=== PATIENT | female | born 1960 | race African-American/Black ===

== ENCOUNTER → 2017-07-30 | Outpatient (POV) | payer OTHER, SELFPAY | PROVIDERS: Visit Provider Internal Medicine | DX: I73.9 Peripheral vascular disease, unspecified (principal); I10 Essential (primary) hypertension; R07.89 Other chest pain | CPT/HCPCS: 93005 ==

== ENCOUNTER 2017-08-04 08:30 | Day surgery (SDC) | payer OTHER, SELFPAY ==
[2017-08-04] VITALS (16 sets, daily range): BP systolic 123–163; BP diastolic 69–99; PULSE 51–71; RESP 16–20; TEMP 36.6–36.7; O2SAT 94–100; BMI 23.0
--- NOTE | 2017-08-04 08:30 | IR_ITS ---
CARDIAC CATHETERIZATION DATE OF CATHETERIZATION:08/04/2017 10:07 AM PROCEDURES: 1. Right femoral arterial access 2. Catheter placement in the right external iliac artery 3. Right external iliac artery angiogram 4. Right radial access 5. Left heart catheterization 6. Left ventriculogram 7. Selective coronary angiogram 8. Catheter placement in the abdominal aorta 9. Abdominal aortography 10. Repositioning of the catheter in the abdominal aorta 11. Bilateral iliofemoral artery angiogram 12. Catheter placement in the right common iliac artery 13. The common iliac artery angiogram 14. Stent deployment to the right external iliac artery 15. Post stent deployment right external iliac artery angiogram INDICATION FOR TEST: 1. Peripheral artery disease 2. Abnormal ankle-brachial index 3. Simpson class III claudication 4. Coronary artery disease 5. Angina pectoris Informed consent was obtained prior to the procedure. COMPLICATIONS: None ESTIMATED BLOOD LOSS: Less than 10 ml. TECHNIQUE: One percent lidocaine used to anesthetize the right groin. The right femoral artery was accessed via the Seldinger technique and a 4 New Zealander sheath was placed in the right femoral artery. Using a glide wire the wire was wished distally. I was unable to get the wire into the aorta therefore JR4 catheter was advanced however I was unable to steer beyond the common iliac artery bifurcation. Angiography was performed via the right coronary catheter is demonstrated retrograde dissection plane. Because of this the sheath was removed and good hemostasis was achieved using manual pressure. At this point One percent lidocaine used to anesthetize the right anterior aspect of the wrist. The right radial artery was accessed via the Seldinger technique. A 6 New Zealander sheath was placed in the right radial artery. 2.5 mg of verapamil, 800 mcg of nitroglycerin and 5000 U Heparin were given through the arterial sheath. The trap catheter was also used to perform left heart catheterization left ventriculogram and selective coronary angiography. A pigtail catheter was advanced into the abdominal aorta and abdominal aortography was performed. The catheter was then repositioned and bilateral iliofemoral artery angiography was performed. An additional 2000 units of heparin was administered intravenously and a 125 cm multipurpose catheter was used to cannulate the right common iliac artery and angiography was performed using the roadmap modality. At this point an advantage wire was advanced under fluoroscopic guidance into the right superficial femoral artery. A 7 mm x 59 mm absolute pro balloon mounted stent was advanced through the radial artery into the right external iliac artery. The wire was pulled back and angiography was performed. The wire was reinserted and the stent was deployed at 11 naomi reducing the 90% stenosis to 0%. The balloon was pulled back into the proximal segment the wire was removed and angiography was performed which demonstrated wide patency of the right external iliac artery. At this point the apparatus was removed the sheath was removed good hemostasis was achieved using TR banding patient was transferred to the postop holding area in stable condition. ACT measured 262 seconds ANGIOGRAPHIC RESULTS: 1. The left main artery has an ostial 20% and distal 30% concentric stenosis 2. The left anterior descending artery is a very tortuous vessel and has proximal 20 and 30% stenoses with diffuse mid vessel 30 and 40% stenoses 3. The circumflex artery is nondominant yet still a large vessel with a high first obtuse marginal artery or ramus intermedius. Ramus has a proximal 50% stenosis while the proximal circumflex artery has 40 and 50% stenoses 4. The right coronary artery is a dominant
[2017-08-04 09:04] LABS: Basophils % 0.9 % (0.1-2.0); Eosinophils # 0.2 K/mm3 (0.0-0.4); Eosinophils % 3.6 % (0.1-12.0); Hematocrit 40.3 % (37.0-47.0); Hemoglobin 13.4 g/dL (12.2-16.2); Lymphocytes # 1.4 K/mm3 (0.7-4.5); Lymphocytes % 27.8 K/mm3 (10-50); Mean Corpuscular HGB Conc 33.3 g/dL (31.8-35.4); Mean Corpuscular Hemoglobin 29.2 pg (27.0-31.2); Mean Corpuscular Volume 87.6 fl (81-99); Mean Platelet Volume 7.6 fl (7.4-10.4); Monocytes # 0.4 K/mm3 (0.1-1.0); Monocytes % 7.1 % (1.7-9.3); Neutrophils % 60.7 % (37.0-80.0); Platelet Count 301 K/mm3 (142-424); Red Cell Distribution Width 13.8 % (11.5-17.5); White Blood Count 4.9 K/mm3 (4.8-10.8)
[2017-08-04 09:22] LABS: Anion Gap 9.2 mEq/L (5-15); Blood Urea Nitrogen 10 mg/dL (7-18); Carbon Dioxide 28 mmol/L (21.0-32.0); Chloride 104 mmol/L (98-107); Creatinine Clearance Estimated 89 mg/ml (0-300); Creatinine,Serum 0.67 mg/dL (0.55-1.02); Estimated Glomerular Filt Rate > 60 ml/min (>60); GFR (African American) > 60 ML/MIN (>60); Glucose 101 mg/dL (74-106); Potassium 4.2 mmoL/L (3.5-5.1); Sodium 137 mmol/L (136-145)
[2017-08-04 15:56] LABS: CATHL Activated Clotting Time 262 SEC (74-125)
== END 2017-08-04 14:30 | disposition home or self-care (01) ==
LOC: CATHLAB 08:33
PROVIDERS: PCP Family Medicine; Visit Provider Internal Medicine
DX: I25.119 Atherosclerotic heart disease of native coronary artery with unspecified angina pectoris (principal); Z72.0 Tobacco use; I73.9 Peripheral vascular disease, unspecified; I70.211 Atherosclerosis of native arteries of extremities with intermittent claudication, right leg
CPT/HCPCS: 36245; 37221; 75630; 75710; 80048; 85025; 85347; 93458; 99152; 99153; C1725; C1769; C1876; C1894; G0278; J1644; Q9966; Q9967

== ENCOUNTER 2017-08-13 07:31 | Day surgery (SDC) | payer OTHER, SELFPAY ==
[2017-08-13] VITALS (60 sets, daily range): BP systolic 118–193; BP diastolic 64–116; PULSE 58–96; RESP 16–30; TEMP 36.6–36.9; O2SAT 94–100; BMI 22.8
--- NOTE | 2017-08-13 | IR_ITS ---
PROCEDURE: 1. Right femoral arterial access 2. Left femoral arterial access 3. Catheter placement in the abdominal aorta left groin 4. Catheter placement in the abdominal aorta from the right groin 5. Angioplasty stent deployment to the distal abdominal aorta 6. Angioplasty stent deployment to the left common iliac artery 7. Angioplasty stent deployment to the right common iliac artery 8. Angioplasty stent deployment to the right external iliac artery 9. Right retrograde femoral angiogram 10. Left retrograde femoral angiogram INDICATION: 1. Peripheral artery disease 2. [place] class III claudication 3. Aortoiliac atherosclerosis Informed consent was obtained prior to the procedure. COMPLICATIONS: None ESTIMATED BLOOD LOSS: Blood loss less than 10 cc. TECHNIQUE:1% lidocaine used to anesthetize the left femoral groin. The left femoral artery was accessed via the Seldinger technique and a 6 Ivorian sheath was placed in the left femoral artery. 1% lidocaine was used to anesthetize the right groin in the right femoral artery was accessed via the Seldinger technique. A 6 Ivorian sheath was placed in the right femoral artery. The advantage wire is were used to traverse the stenosis in the left iliofemoral system. I was unable to pass the wire in a retrograde manner up the right iliofemoral system due to entering a dissection plane retrograde. Because of this a CRAWLEY catheter was placed in the left groin into the distal abdominal aorta and an advantage wire was used to traverse the stenosis in an antegrade manner. The catheter was then advanced into the right external iliac artery pushing back the dissection. This allowed retrograde cannulation of the external iliac artery and then passage of the wire into the abdominal aorta through the true lumen via the right groin. At this point the CRAWLEY catheter was placed back into the abdominal aorta and a wire was placed into the abdominal aorta from the left groin. 8 mm x 59 mm Omnilink stents were deployed simultaneously in the distal abdominal aorta extending into the right and left common iliac artery. Both were deployed at 15 naomi. Excellent angiographic results were obtained. An additional 7 mm x 59 mm Omnilink stent was then placed in the right common iliac artery extending into the right external iliac artery and then deployed at 15 naomi. Excellent angiographic results were obtained. Patient received 6000 units of heparin prior to the procedure producing an ACT of 276. An additional 2000 units of heparin was administered. At the end of the procedure retrograde angiography were performed via each femoral artery demonstrating wide patency. The procedure the patient transferred the postop holding area in stable condition for sheath removal Impression: 1. Successful reconstruction of the aortic bifurcation severe disease reduced to 0% with 2 bare-metal stents 2. Successful stenting of the right external iliac artery severe disease reduced to 0% with 1 bare-metal stent Plan: 1. Dual antiplatelet therapy 2. Tobacco cessation 3. Risk factor modification combined with cardiac rehabilitation and LDL less than 55
--- NOTE | 2017-08-13 | CT_ITS ---
CT abdomen pelvis wo con CLINICAL INDICATION: Severe abdominal pain and hypotension following iliac stent placement. Evaluate for retroperitoneal bleed ITS.REASON: POST CATH-- ILIAC STENTS ORDERING PHYSICIAN: Kolby Felix MD PATIENT AGE: 57 years COMPARISON: 07/15/2017 TECHNIQUE: Axial images obtained with sagittal and coronal reformats. PROCEDURE: Oral Contrast: None IV Contrast: None . FINDINGS: There are atelectatic changes in the lung bases. Prior cholecystectomy without ductal dilatation. The liver, spleen, adrenal glands, and pancreas are unremarkable. This exam was performed after contrast administration in the catheter lab. There was some residual contrast within the renal collecting system. Bilateral iliac artery stents are present. There is no evidence of retroperitoneal hemorrhage. No pelvic hematoma evident. Fluid-filled loops of small bowel are noted. Bowel gas pattern is nonspecific. No intestinal obstruction or free air.. No acute bony anomalies. There are bilateral common femoral artery sheaths in place with minimal stranding of the fat in the region bilaterally. IMPRESSION: Status post bilateral common iliac artery stent placement. No evidence of acute hemorrhage/perforation.
[2017-08-13 08:05] LABS: Basophils # 0.1 K/mm3 (0-0.2); Basophils % 1.2 % (0.1-2.0); Eosinophils # 0.3 K/mm3 (0.0-0.4); Hematocrit 39.3 % (37.0-47.0); Hemoglobin 13.3 g/dL (12.2-16.2); Lymphocytes # 1.7 K/mm3 (0.7-4.5); Lymphocytes % 30.9 K/mm3 (10-50); Mean Corpuscular HGB Conc 33.9 g/dL (31.8-35.4); Mean Corpuscular Hemoglobin 28.8 pg (27.0-31.2); Mean Corpuscular Volume 85.1 fl (81-99); Mean Platelet Volume 7.1 fl (7.4-10.4); Monocytes # 0.3 K/mm3 (0.1-1.0); Monocytes % 5.7 % (1.7-9.3); Neutrophils # 3.1 K/mm3 (1.8-7.8); Neutrophils % 57.3 % (37.0-80.0); Platelet Count 341 K/mm3 (142-424); Red Blood Count 4.62 M/mm3 (4.20-5.40); Red Cell Distribution Width 13.4 % (11.5-17.5); White Blood Count 5.5 K/mm3 (4.8-10.8)
[2017-08-13 08:15] LABS: Anion Gap 11.9 mEq/L (5-15); Blood Urea Nitrogen 11 mg/dL (7-18); Carbon Dioxide 26 mmol/L (21.0-32.0); Chloride 106 mmol/L (98-107); Creatinine Clearance Estimated 85 mL/min (0-300); Creatinine,Serum 0.72 mg/dL (0.55-1.02); Estimated Glomerular Filt Rate 83 ml/min (>60); GFR (African American) 101 ML/MIN (>60); Glucose 102 mg/dL (74-106); Potassium 3.9 mmoL/L (3.5-5.1); Sodium 140 mmol/L (136-145)
[2017-08-13 11:12] LABS: Microscopic, Urine URINE MICROSCOPIC (MICROSCOPIC)
[2017-08-13 11:15] LABS: Appearance,Urine CLEAR (Clear); Bilirubin,Urine Negative (Negative); Blood, Urine Negative (Negative); Color,Urine STRAW (Yellow); Glucose,Urine (UA) Negative (Negative); Ketones,Urine Negative (Negative); Leukocyte Esterase,Urine Negative (Negative); Nitrate,Urine Negative (Negative); Protein,Urine 1+ (Negative); Urobilinogen,Urine 0.2 EU/dl (0.2)
[2017-08-13 11:34] LABS: Bacteria,Urine Trace /lpf
[2017-08-16 08:17] LABS: CATHL Activated Clotting Time 161 SEC (74-125)
[2017-08-16 08:34] LABS: CATHL Activated Clotting Time 331 SEC (74-125)
[2017-08-16 08:35] LABS: CATHL Activated Clotting Time 268 SEC (74-125)
--- NOTE | 2017-08-19 11:06 | PC.NURSE ---
post procedure call made, pt states she has dime sized knot to groin area but has not changed since procedure, denies any questions/concerns at this time
== END 2017-08-13 18:00 | disposition home or self-care (01) ==
LOC: CATHLAB 07:32
PROVIDERS: PCP Family Medicine; Visit Provider Internal Medicine
DX: I73.9 Peripheral vascular disease, unspecified (principal); Z72.0 Tobacco use; I70.0 Atherosclerosis of aorta; I25.10 Atherosclerotic heart disease of native coronary artery without angina pectoris; I10 Essential (primary) hypertension
CPT/HCPCS: 37221; 37223; 74176; 80048; 81001; 85025; 85347; 99152; 99153; C1725; C1769; C1876; C1894; J1644; J2405; J2720; Q9966

== ENCOUNTER → 2017-09-24 09:02 | Outpatient (CLI) | payer OTHER, SELFPAY ==
--- NOTE | 2017-09-24 09:04 | MR_ITS ---
MR lumbar spine wo/w con, MR 3-d myelogram/MRCP HISTORY: Low back pain with bilateral leg pain. Pain when walking and standing which is worsening ITS.REASON: LOW BACK PAIN, BILATERAL LEG PAIN ORDERING PHYSICIAN: Kolby Felix MD PATIENT AGE: 57 years COMPARISON: None TECHNIQUE: Standard multiplanar multiecho sequences are performed without contrast. 3-D MIP and myelographic images are also rendered and reviewed FINDINGS: There is normal alignment. The spinal cord ends at the L1 level. T12-L1: Unremarkable. L1-L2: Unremarkable. L2-L3: Unremarkable. L3-L4: Unremarkable. L4-L5: There is a small broad-based central/left paracentral and left lateral disc protrusion. This is causing mild left lateral recess and foraminal narrowing and is impinging upon the introspective left L5 nerve root. L5-S1: Bulging disc with small right paracentral disc protrusion/herniation which is impinging upon the right S1 nerve root and causing mild right lateral recess and foraminal narrowing. There is some increased T2 and enhancement involving the protruding disc. IMPRESSION: 1. There is a small broad-based central/left paracentral and left lateral disc protrusion at L4-L5. This is causing mild left lateral recess and foraminal narrowing and is impinging upon the introspective left L5 nerve root. 2. Bulging disc with small right paracentral disc protrusion/herniation at L5-S1 which is impinging upon the right S1 nerve root and causing mild right lateral recess and foraminal narrowing. There is some increased T2 and enhancement involving the protruding disc suggesting underlying inflammation of the protruding disc
[2017-09-24 09:35] LABS: Blood Urea Nitrogen 9 mg/dL (7-18); Creatinine,Serum 0.72 mg/dL (0.55-1.02); Estimated Glomerular Filt Rate 83 ml/min (>60); GFR (African American) 101 ML/MIN (>60)
--- NOTE | 2017-09-24 10:30 | HMH.ITSHM ---
AMLODIPINE CARVEDILOL LISINOPRIL CLOPIDOGREL ASPIRIN NITROSTAT GABAPENTIN
== END ==
PROVIDERS: PCP Family Medicine; Visit Provider Internal Medicine
DX: G62.9 Polyneuropathy, unspecified (principal); M54.16 Radiculopathy, lumbar region; M54.5 Low back pain; I73.9 Peripheral vascular disease, unspecified
CPT/HCPCS: 36415; 72158; 76376; 82565; 84520; A9576

== ENCOUNTER → 2017-10-14 13:59 | Outpatient (POV) | payer OTHER, SELFPAY | PROVIDERS: PCP Family Medicine; Visit Provider Neurological Surgery | DX: Z00.00 Encounter for general adult medical examination without abnormal findings (principal) ==

== ENCOUNTER 2017-12-16 15:30 | Outpatient (RCR) | payer OTHER, SELFPAY | END 2017-12-16 15:31 | disposition home or self-care (01) | LOC: PT 15:30 | PROVIDERS: PCP Family Medicine; Visit Provider Neurological Surgery | DX: M54.5 Low back pain (principal) | CPT/HCPCS: 97010; 97012; 97014; 97033; 97035; 97110; 97140; 97164; G0283 ==

== ENCOUNTER 2018-05-04 16:00 | Outpatient (RCR) | payer BC, SELFPAY ==
--- NOTE | 2018-04-15 10:40 | HMH.PTOPEV ---
PT Outpatient Evaluation Rehab PT Outpatient Evaluation Start: 04/15/18 10:29 Freq: Status: Active Protocol: Document 04/15/18 10:29 RYAN (Rec: 04/15/18 10:39 RYAN [id number]) Electronically Signed By Domingo Mantilla, PT 04/15/18 10:29 Outpatient Therapy Subjective History Subjective History Pt is a 58 year old female presenting to outpatient PT with reports of chronic low back pain starting 10/2017 with the most recent exacerbation starting 03/07/18 when sharp pain shot down the R posterior thigh with forward bending motion. Most recent diagnostics indicate L 4/5 disc bulge. Chief Complaint Pain Symptom Type Shooting Symptoms Relieved By Rest/Positioning Heat OTC Meds Symptoms Aggravated By Sitting Standing Walking Prior Functional Limitations None Current Functional Limitations Standing Sitting Walking Symptom Description Constant but Variable Level of pain today (0-10) 2 Pain scale - at its best (0-10) 1 Pain scale - at its worst (0-10) 7 Lumbopelvic Eval Posture Thoracic Spine Posture Standing Position Neutral Lumbar Spine Posture Standing Position Increased Lordosis Assistive device Assistive Devices None / NA Gait Observation General Gait Pattern Observation No Deviations/Normal Range of Motion Lumbar Spine Active Flexion Range of 85 Motion (degrees) Lumbar Spine Active Extension Range of 16 Motion (degrees) Left Lumbar Spine Lateral Flexion Active 14 Range of Motion (degrees) Right Lumbar Spine Lateral Flexion 28 Active Range of Motion (degrees) Lumbar Spine ROM Limitations Soft Tissue Tightness Bony Restriction Manual Muscle Test Bilateral Knee Extension Strength Grade 5 Normal Knee Flexion Strength Grade 5 Normal Hip Flexion Strength Grade 5 Normal Extensor Hallucis Longus Strength Grade 5 Normal Ankle Dorsiflexion Strength Grade 5 Normal Gastronemius/Soleus Strength Grade 5 Normal DTR Rt Patellar 2+ Lt Patellar 2+ Rt Gastroc/Soleus 2+ Lt Gastroc/Soleus 2+ Special Tests Lumbar Spine Screen Positive Hip Scouring (Quadrant) Test Negative Right Hip Johnathan (YAMIL) Test Positive
== END 2018-05-04 16:01 | disposition home or self-care (01) ==
LOC: PT 16:00
PROVIDERS: PCP Family Medicine; Visit Provider Family Medicine
DX: M51.36 Other intervertebral disc degeneration, lumbar region (principal)
CPT/HCPCS: 97010; 97012; 97014; 97110; 97163; G0283

== ENCOUNTER → 2018-05-09 13:32 | Outpatient (CLI) | payer BC, SELFPAY ==
--- NOTE | 2018-05-09 13:34 | US_ITS ---
US Arterial Ankle Brachial Ind History: ITS.REASON: claudication, smoker, rest pain values for ankle-brachial index ankle brachial index values are ORDERING PHYSICIAN: Kolby Felix MD PATIENT AGE: 58 years TECHNIQUE: Segmental pressures obtained of both right and left leg. These are compared to brachial blood pressure to yield index at each level sampled including summary YAHAIRA. The data sheets from the procedure are available in PACS FINDINGS Rest study only performed today No prior studies available for comparison. Blood pressures reported are in millimeters mercury. RIGHT LEG YAHAIRA = .6. RIGHT LEG TBI=.5 Brachial BP: 160 Thigh BP: 138 Calf BP: 96 Ankle PT: 100 Ankle DP : 112 Digit =73 LEFT LEG YAHAIRA = .5 LEFT LEG TBI= .4 Brachial BPD: 157 Thigh BP: 128 Calf BP: 99 Ankle PT:72 Ankle DP: 62 Digit = 70 Pulses and waveforms: Dampened waveforms IMPRESSION: Low bilateral ABIs of 0.6 on the right and 0.5 on the left indicating moderate arterial disease.
== END ==
PROVIDERS: PCP Family Medicine; Visit Provider Internal Medicine
DX: I25.10 Atherosclerotic heart disease of native coronary artery without angina pectoris (principal); I73.9 Peripheral vascular disease, unspecified; E78.5 Hyperlipidemia, unspecified; I10 Essential (primary) hypertension; F17.200 Nicotine dependence, unspecified, uncomplicated
CPT/HCPCS: 93922

== ENCOUNTER → 2018-06-15 07:42 | Outpatient (CLI) | payer BC, SELFPAY ==
--- NOTE | 2018-06-15 07:44 | AS_ITS ---
Renal Arterial Duplex Indications: 405.91 Unspecified renovascular hypertension. IMPRESSIONS 1. The right renal artery appears normal. 2. The left renal artery appears normal. Complete renal arterial duplex. Duplex scan and Doppler flow study including spectral analysis, color and sanchez scale imaging. Height: Height: 162.6cm. Height: 64in. Weight: Weight: 60.3kg. Weight: 132.7lb. Body mass index: BMI: 22.8kg/m^2. Body surface area: BSA: 1.66m^2. Location: Vascular laboratory. Patient status: Outpatient. Tables: Arterial flow: + +--------+--------+ Location V sys V ed + +--------+--------+ Right renal - proximal 183cm/s 66.5cm/s + +--------+--------+ Right renal - mid 140cm/s 39.6cm/s + +--------+--------+ Right renal - distal 141cm/s 41.7cm/s + +--------+--------+ Left renal - proximal 94.3cm/s 28.9cm/s + +--------+--------+ Left renal - mid 122cm/s 47.2cm/s + +--------+--------+ Left renal - distal 110cm/s 37.3cm/s + +--------+--------+ Renal anatomy: + +------+------+ Left Right + +------+------+ Long axis 10.9cm 11.4cm + +------+------+ Short axis 7.3cm 6.1cm + +------+------+ Velocity ratios: + +-----+ V sys + +-----+ Right renal/aortic 2.1 + +-----+ Left renal/aortic 1.4 + +-----+ (Report amended ) Electronically signed by: Rufino Parra [id number]
--- NOTE | 2018-06-15 07:44 | US_ITS ---
. US kidney retroperitoneal comp Ordering Physician: Kolby Felix MD Patient Age: 58 years: Female HISTORY: ITS.REASON: HTN . TECHNIQUE: Ultrasound both kidneys. COMPARISON :. CTA aorta from July 2014 FINDINGS Kidneys normal size bilaterally with no hydronephrosis nor mass. no cyst Cortex well-maintained bilaterally. Good color Doppler flow both kidneys with this general survey technique . Kidneys normal size Right kidney. 10 cm on the overall may be prior retroareolar was K no the in length x 3.9 cm thousand 6.25 cm. Left kidney insertion of the liver or is 3 cm x 4.1 cm x 5.1 cm. Additional note after reviewing prior CT. The July 2017 CTA aorta and runoff shows widely patent renal arteries bilaterally. No significant renal artery stenosis and although images of branch vessels is not compromised, see no bleeding or evidence of fibromuscular dysplasia... There is a single more generous caliber right renal artery just to smaller caliber left renal arteries is noted. (Also adrenals appear within normal limits bilaterally.-With No retroperitoneal mass/ & no evidence of retroperitoneal pheochromocytoma on this CT from July 2017) IMPRESSION: Kidneys appear normal bilaterally. No renal mass. Cortex well-maintained. (Limited review of 2017 CTA aorta show no renal artery stenosis, nor adrenal enlargement/ mass)
== END ==
PROVIDERS: PCP Family Medicine; Visit Provider Internal Medicine
DX: I10 Essential (primary) hypertension (principal); I25.10 Atherosclerotic heart disease of native coronary artery without angina pectoris; E78.49 Other hyperlipidemia; G62.9 Polyneuropathy, unspecified; I20.9 Angina pectoris, unspecified; I73.9 Peripheral vascular disease, unspecified; K55.059 Acute (reversible) ischemia of intestine, part and extent unspecified; F17.200 Nicotine dependence, unspecified, uncomplicated
CPT/HCPCS: 76770; 93976

== ENCOUNTER → 2018-10-27 15:01 | Outpatient (CLI) | payer BC, SELFPAY ==
--- NOTE | 2018-10-27 15:04 | CT_ITS ---
EXAM: CT LUNG LOW DOSE WO CONTRAST COMPARISON: None HISTORY: 1 pack per day for 40 years ago 40 pack-year.. Currently smoking no signs or symptoms of lung cancer TECHNIQUE: The exam was performed on a GE Light Speed [address] scanner using 3.0 mGy CTDI. A low dose helical CT CHEST was performed on a multi-detector scanner. All CT scans at this facility use one or more dose reduction techniques, viz.: automated exposure control, ma/kV adjustment per patient size (including targeted exams where dose is matched to indication, i.e. head) or iterative reconstruction technique. The LDCT was performed in a facility that meets the criteria for the screening program. Data regarding this exam was submitted to ACR which is an approved registry. The order for this exam indicates that it came as a result of a lung cancer screening counseling shard decision-making visit that included all the elements required of such a visit including smoking cessation. The radiologist interpreting this exam meets the CMS criteria for the LDCT lung cancer screening program. The exam is reported using the Lung-RADS classification scale and reported to the ACR registry. NOTE: This study was performed for the specific purposes of lung cancer screening and is not an alternative to diagnostic chest CT. RADIATION DOSE: CTDI vol(CT dose Index-volume) = 29mGy DLP (Dose Length Product) = 101.86 mGy-cm FINDINGS: LUNG COOK Moderately pronounced emphysema. Centrilobularr emphysematous withbleb formation most evident at the upper lung cook bilateral . There are some mild fibrotic changes noted at the, posterior lung bases bilaterally these along with metallic cage changes most evident at the right lung base. Borderline airway thickening centrally. No endobronchial findings.... No lung mass evident. No focal discrete noduleq of concern identified. There is a benign calcified granuloma at the medial right lung base, measuring 4.4 mm. Benign feature. Also benign caliber granuloma seen on axial image 44 at RLL just posterior to the left atrium. Other small calcified granulomas are seen just above this Thus Benign nodules identified (Category1). On Final review I would note that there is a tiny 3.6 mm nodule at the left posterior sulcus but most likely related to scarring. By far most likely Benign feature. Can be followed in one year. LungI-RADS Category 2 MEDIASTINUM: no significant mediastinal adenopathy or mass. Posterior Right lucita at junction with mediastinum. Calcified hilar nodes here reflect old granulomatous disease. Great vessels satisfactory. Aorta normal caliber. The heart. Coronary artery calcification moderately pronounced. Most evident involving the left main, first diagonal, LAD. Also calcification right coronary. Upper abdomen unremarkable. Cholecystectomy. IMPRESSION: 1. Moderately pronounced emphysematous changes bilaterally. 2. No lung masses or nodules of significant concern. Lung RADS Category: 2. Follow-up one year recommended 3. Notable Coronary artery calcification involving left main, LAD, first diagonal right coronary RECOMMENDATIONS: 12 monthd LDCT follow-up
== END ==
PROVIDERS: PCP Family Medicine; Visit Provider Family Medicine
DX: Z12.2 Encounter for screening for malignant neoplasm of respiratory organs (principal); Z87.891 Personal history of nicotine dependence

== ENCOUNTER 2019-02-06 15:53 | Outpatient (RCR) | payer BC, SELFPAY ==
--- NOTE | 2019-02-06 17:25 | HMH.PTOPEV ---
PT Outpatient Evaluation Rehab PT Outpatient Evaluation Start: 02/06/19 16:30 Freq: Status: Active Protocol: Document 02/06/19 16:31 ROOPAREFUGIO (Rec: 02/06/19 17:24 JIMZEKE [id number]) Electronically Signed By Jaxon Mckinney, VANESSA 02/06/19 16:31 Outpatient Therapy Subjective History Subjective History This is the initial Physical Therapy evaluation for Zaira Steward. Pt is a 58 y/o female referred to PT for c/o RUE, shoulder and neck pain along with paresthesia in R hand. Pt reports pain began insidiously ~ 3 weeks ago. Pt reports she thought it was due to a change at work but after she changed back the pain did not resolve. Pt reports her pain has been increasing. Chief Complaint Pain,Paresthesia Symptom Type Ache,Throb,Sharp,Dull,Stabbing ,Burning,Numbness,Tingling, Shooting Symptoms Relieved By Nothing Symptoms Aggravated By Bending/Stooping,Physical Activity,Lifting Prior Functional Limitations None Current Functional Limitations Lifting,Housework,Driving, Sleeping,Recreation Activity Symptom Description Constant but Variable Level of pain today (0-10) 6 Pain scale - at its best (0-10) 5 Pain scale - at its worst (0-10) 8 Cervical Eval Palpation Cervical Muscles R Cervical Paraspinal,R Upper Trapezius,R Thoracic Paraspinals Cervical/Thoracic Palpation Findings Tenderness,Spasm,Muscle Guarding Flexibility Deficits Upper Trapezius Muscle Length (R) Mild Tightness AROM Cervical Spine Extension Active Range of 30 w/ pain Motion (degrees) Cervical Spine Flexion Active Range of 15 w/ pain Motion (degrees) Cervical Spine Right Lateral Flexion 25 w/ pain Active Range of Motion (degrees) Cervical Spine Left Lateral Flexion 20 w/ pain Active Range of Motion (degrees) MMT Bilateral Deltoid (C5) 4 Good Biceps Brachii Strength Grade 4 Good Wrist Extension Strength Grade 4 Good Triceps Brachii Strength Grade 4 Good Wrist Flexion Strength Grade 4 Good DTR Rt Biceps 1+ Lt Biceps 1+ Rt Brachioradialis 1+ Lt Brachioradialis 1+ Rt Triceps
== END 2019-02-06 15:58 | disposition home or self-care (01) ==
LOC: PT 15:53
PROVIDERS: Visit Provider Family Medicine
DX: M54.12 Radiculopathy, cervical region (principal)
CPT/HCPCS: 97010; 97012; 97014; 97110; 97163; G0283

== ENCOUNTER 2019-04-13 10:30 | Outpatient (RCR) | payer BC, SELFPAY ==
--- NOTE | 2019-04-06 13:53 | HMH.PTOPEV ---
PT Outpatient Evaluation Rehab PT Outpatient Evaluation Start: 04/06/19 13:06 Freq: Status: Active Protocol: Document 04/06/19 13:35 MARCKRAULITO (Rec: 04/06/19 13:53 MARCKMAYRADEANN [id number]) Electronically Signed By Domingo Mantilla, PT 04/06/19 13:35 Outpatient Therapy Subjective History Subjective History Patient is a 59 year old female presenting to outpatient PT with reports of acute low back pain with LLE radicular symptoms to the L foot starting approximately 1. 5 weeks ago of insidious onset . Pt has been to the ER at [facility] 2x over the past week. CT scan indicates multi-level disc bulges most prominent at L 4/5 consistent with dermatomal distribution of symptoms. Comorbidities include hx of HTN, cardiac stents x 3. Chief Complaint Pain,Paresthesia Symptom Type Ache,Sharp,Numbness,Tingling, Shooting Symptoms Relieved By Heat Prior Functional Limitations None Current Functional Limitations Reaching,Lifting,Housework, Standing,Sitting,Squatting, Recreation Activity,Walking, Stairs Symptom Description Constant but Variable Level of pain today (0-10) 8 Pain scale - at its best (0-10) 7 Pain scale - at its worst (0-10) 10 Lumbopelvic Eval Posture Thoracic Spine Posture Standing Position Neutral Lumbar Spine Posture Standing Position Neutral Assistive device Assistive Devices None / NA Gait Observation General Gait Pattern Observation Decrease Weight Bear (L) Palapation tenderness left lumbar spinal tenderness Yes: 3/4 grossly paraspinal tenderness Yes buttock tenderness Yes Lumbar/Sacral Palpation Findings Tenderness Accessory Movement L4 left L5 left S1 left Range of Motion Lumbar Spine Active Flexion Range of 58 Motion (degrees) Lumbar Spine Active Extension Range of 18 Motion (degrees) Left Lumbar Spine Lateral Flexion Active 27 Range of Motion (degrees) Right Lumbar Spine Lateral Flexion 24 Active Range of Motion (degrees) Lumbar Spine ROM Limitations Soft Tissue Tightness,Bony Restriction Manual Muscle Test Bilateral Knee Extension Strength Grade
== END 2019-04-13 10:35 | disposition home or self-care (01) ==
LOC: PT 10:30
PROVIDERS: Visit Provider Family Medicine
DX: M54.16 Radiculopathy, lumbar region (principal)
CPT/HCPCS: 97010; 97014; 97033; 97035; 97110; 97163; G0283

== ENCOUNTER → 2022-06-09 08:09 | Outpatient (CLI) | payer BC, SELFPAY ==
--- NOTE | 2022-06-09 08:11 | MM_ITS ---
PROCEDURE INFORMATION: Exam: MG Bilateral Screening 3D Mammography Exam date and time: 06/09/2022 8:02 AM Age: 62 years old Clinical indication: Screening examination. Her grandmother had breast cancer. TECHNIQUE: Imaging protocol: Bilateral Screening tomosynthesis and 2D mammography including computer-aided detection (CAD) when performed. COMPARISON: 1. MG DMSB DIG MAMM-SCREEN JOSEPHINE W/CAD 05/07/2017 4:24 PM 2. MG DMSB DIG MAMM-SCREEN JOSEPHINE 05/24/2014 4:41 PM 3. MG DIGMAMMS MAMMOGRAM SCREEN-TOURIST CABIN KEEPER N/C 11/05/2008 4:47 PM 4. MG DIGMAMMDX MAMMOGRAM DX-TOURIST CABIN KEEPER N/C 05/23/2008 4:47 PM FINDINGS: MAMMOGRAPHY: Breast composition: There are scattered areas of fibroglandular density. Mass: No suspicious mass. Architectural distortion: None. Calcifications: No suspicious calcifications. Asymmetric density: None. Skin thickening: None. Axillary adenopathy: None. IMPRESSION: No mammographic evidence of malignancy. Annual screening is recommended unless otherwise clinically indicated. ASSESSMENT: BI-RADS Category 1: Negative
== END ==
PROVIDERS: PCP Family Medicine; Visit Provider Family Medicine
DX: Z12.31 Encounter for screening mammogram for malignant neoplasm of breast (principal)
CPT/HCPCS: 77063; 77067

== ENCOUNTER → 2022-10-07 13:42 | Outpatient (CLI) | payer BC, SELFPAY ==
[2022-10-07 13:32] LABS: Microscopic, Urine URINE MICROSCOPIC (MICROSCOPIC)
--- NOTE | 2022-10-07 13:43 | CT_ITS ---
FINAL REPORT TECHNIQUE: Axial images were obtained from the lung apex to the mid abdomen by computed tomography. This study was performed with techniques to keep radiation doses as low as reasonably achievable (ALARA). Individualized dose reduction techniques using automated exposure control or adjustment of mA and/or kV according to the patient's size were employed. CLINICAL HISTORY: lung cancer screening, currently smokes half pack per day for 10 years, no prior cancer hx COMPARISON: 10/27/2018 FINDINGS: CHEST CT LOW DOSE CTDI vol (mGy): 2.90 DLP (mGy-cm): 96.38 There is severe coronary artery calcification. There is no axillary adenopathy. There is no hilar or mediastinal adenopathy. The heart is normal in size. There is no pericardial or pleural effusion. There are moderate changes of emphysema. There is a 3 mm lateral left lung base nodule which is stable. There is a calcified granuloma in the right lower lobe. The patient is status post cholecystectomy. IMPRESSION: Coronary artery calcification. Lung RADS category 1S. Recommend 12 month follow-up low-dose chest CT. Reviewed, Interpreted and Dictated by Martin Box III, MD Transcribed by Maureen Huber Authenticated and [facility]
[2022-10-07 14:04] LABS: Appearance,Urine CLEAR (Clear); Bilirubin,Urine Negative (Negative); Blood, Urine TRACE-I (Negative); Color,Urine YELLOW (Yellow); Glucose,Urine (UA) Negative (Negative); Ketones,Urine Negative (Negative); Leukocyte Esterase,Urine Negative (Negative); Nitrate,Urine Negative (Negative); Protein,Urine Negative (Negative); Specific Gravity, Urine 1.015 (1.005-1.030); Urobilinogen,Urine 0.2 EU/dl (0.2)
[2022-10-07 14:09] LABS: Basophils # 0.1 K/mm3 (0-0.2); Basophils % 1.4 % (0.1-2.0); Eosinophils # 0.3 K/mm3 (0.0-0.4); Eosinophils % 4.7 % (0.1-12.0); Hematocrit 42.9 % (37.0-47.0); Hemoglobin 14.2 g/dL (12.2-16.2); Lymphocytes # 2.1 K/mm3 (0.7-4.5); Lymphocytes % 33.9 % (10-50); Mean Corpuscular HGB Conc 33.2 g/dL (31.8-35.4); Mean Corpuscular Hemoglobin 29.3 pg (27.0-31.2); Mean Corpuscular Volume 88.4 fl (81-99); Mean Platelet Volume 7.6 fl (7.4-10.4); Monocytes # 0.4 K/mm3 (0.1-1.0); Monocytes % 6.3 % (1.7-9.3); Neutrophils # 3.3 K/mm3 (1.8-7.8); Neutrophils % 53.6 % (37.0-80.0); Platelet Count 408 K/mm3 (142-424); Red Blood Count 4.85 M/mm3 (4.20-5.40); Red Cell Distribution Width 14.1 % (11.5-17.5); White Blood Count 6.1 K/mm3 (4.8-10.8)
[2022-10-07 14:17] LABS: Bacteria,Urine Trace /lpf; Squamous Epithelial Cell,Urine Occasional #/hpf (0-5); WBC,Urine Occasional #/hpf (0-3)
[2022-10-07 15:24] LABS: Alanine Aminotransferase 23 U/L (12-78); Albumin Level 4.4 g/dl (3.5-5.0); Albumin/Globulin Ratio 1.7 (1.1-1.8); Alkaline Phosphatase 87 U/L (38-126); Aspartate Amino Transferase 28 U/L (14-36); Bilirubin,Total 0.6 mg/dl (0.2-1.3); Blood Urea Nitrogen 13 mg/dl (7-17); Calcium 9.1 mg/dl (8.4-10.2); Carbon Dioxide 25 mmol/L (22.0-30.0); Chloride 105 mmol/L (98-107); Chol/HDL Ratio 6.1 (1-3.5); Cholesterol 291 mg/dl (140-200); Estimated Glomerular Filt Rate 73 ml/min (>60); GFR (African American) 88 ML/MIN (>60); Globulin 2.6 g/dL (1.3-3.2); Glucose 86 mg/dl (74-100); HDL Cholesterol 48 mg/dl (40-60); Sodium 137 mmol/L (136-145); Triglycerides 206 mg/dl (30-150); VLDL Cholesterol 41 mg/dL (0-40)
[2022-10-07 15:35] LABS: Direct LDL Cholesterol 172.14 mg/dL (100-129)
[2022-10-07 15:57] LABS: Thyroid Stimulating Hormone 1.17 uIU/mL (0.465-4.68)
== END ==
LOC: RAD 13:43
PROVIDERS: PCP Family Medicine; Visit Provider Family Medicine
DX: E78.5 Hyperlipidemia, unspecified (principal); I10 Essential (primary) hypertension; I73.9 Peripheral vascular disease, unspecified; Z87.891 Personal history of nicotine dependence; Z12.2 Encounter for screening for malignant neoplasm of respiratory organs
CPT/HCPCS: 36415; 71271; 80053; 80061; 81001; 84443; 85025; 87086

== ENCOUNTER → 2022-10-19 12:43 | Outpatient (CLI) | payer BC, SELFPAY ==
--- NOTE | 2022-10-19 12:44 | CT_ITS ---
FINAL REPORT CLINICAL HISTORY: claudication/pad/jelena FINDINGS: Post contrast axial imaging of the aorta and bilateral lower extremity was obtained and reviewed.This study was performed with techniques to keep radiation doses as low as reasonably achievable (ALARA). Individualized dose reduction techniques using automated exposure control or adjustment of mA and/or kV according to the patient''s size were employed. There is no evidence of aortic aneurysm. There is moderate vascular calcification of the distal abdominal aorta without evidence of aortic stenosis. The celiac axis, superior mesenteric artery and inferior mesenteric artery are patent without stenosis. There is no evidence of renal artery stenosis. There are bilateral common iliac artery stents in place. Right: Right iliac artery stent is seen to the level of the common femoral artery. 50% stenosis is seen at the distal margin of the stent. There is moderate atherosclerosis throughout the mid and distal superficial femoral artery continuous with the popliteal artery. There is 2 vessel runoff via the anterior tibial and peroneal arteries. Left: There is moderate atherosclerosis of the mid and distal superficial femoral artery continuous with the popliteal artery. There is segmental occlusion of the proximal left anterior tibial artery with distal reconstitution. Peroneal artery is continuous. Gallbladder is surgically absent. There are calcified granulomas of the spleen. Uterus is eccentric to the left. Review of the remaining abdomen and pelvis demonstrates no evidence of mass or adenopathy. There is no fluid collection or acute inflammatory process. IMPRESSION: Mild atherosclerotic irregularity of the mid and distal SFA bilaterally. Right external iliac artery stent with 50% stenosis distally. Reviewed, Interpreted and Dictated by Evin Atkins MD Transcribed by Alexia Song Authenticated and [facility] [place]
--- NOTE | 2022-10-19 13:13 | CA_ITS ---
APPROVED REPORT EXAM: Comprehensive 2D, Doppler, and color-flow Echocardiogram Manager Quantitative: Lyric Miller RT(R) Ht: 5 ft 4 in Wt: 127lbs BSA: 1.61 BP: 198/78 mmHg Indications: abn EKG, HTN, hyperlipidemia, SOB, smoker, CAD, ADAM, PVD 2D Dimensions LVOT 1.94 cm (M/F) 1.5-2.5 LA Volume 16.10 mL LA Volume Index 10.00 mL/m2 (M/F) 16-34 M-Mode Dimensions RVDd 2.76 cm (0.9-2.6) LA Diam 3.03 cm (1.9-4.0) LVDd 4.39 cm (3.5-5.7) Ao Diam 2.24 cm (2.0-3.7) LVDs 3.23 cm (3.5-5.7) IVSd 0.76 cm (0.6-1.1) PWd 0.67 cm (0.6-1.1) EF (Teich) 51.90% FS 26.40% EDV (Teich) 87.20 mL TAPSE 2.10 (<1.7) ESV (Teich) 41.90 mL LV Diastology E Decel Time 163.00 (160-240 msec) E/A Ratio 1.47 MED E' 8.90 (< 7 cm/sec) E'/MED E' Ratio 11.30 (>14) LAT E' 11.60 (<10 cm/sec) E/LAT E' Ratio 8.67 (>14) Mitral Valve MV A Velocity 69.00 (40-130 cm/s) E/A Ratio 1.47 MV Decel. Time 163.00 (160-240 ms) Left Ventricle Left atrium is mildly enlarged, left ventricle is normal size mild concentric left ventricular hypertrophy, estimated ejection fraction 55% with no regional wall motion abnormality, diastolic parameters are inconclusive. Right Ventricle Right atrium and right ventricular normal size and contractility. Aortic Valve Aortic valve is minimally thickened and fibrosed there is no aortic stenosis aortic insufficiency. Mitral Valve Mitral valve is grossly normal, there is trace mitral regurgitation. Tricuspid Valve Tricuspid grossly normal, there is trace tricuspid regurgitation, tricuspid regurgitation jet velocity is inadequate for calculation of the right ventricular systolic pressure. Pulmonic Valve Pulmonic valve is poorly visualized. Great Vessels Aortic root is normal size. Inferior vena cava normal 7 normal inspiratory collapse. Pericardium No significant pericardial effusion noted. Conclusion 1. Mildly enlarged left atrium, normal left ventricular size mild concentric left ventricular hypertrophy, estimated ejection fraction 55% with no regional wall motion abnormality, diastolic parameters are inconclusive. 2. Trace mitral and tricuspid regurgitation. 3. No significant pericardial effusion noted. 4. Inferior vena cava is normal size with normal inspiratory collapse. Electronically signed by : Fernie Gilbert MD 10/19/2022 14:03:50
== END ==
PROVIDERS: PCP Family Medicine; Visit Provider Nurse Practitioner Family
DX: R06.00 Dyspnea, unspecified (principal); I25.10 Atherosclerotic heart disease of native coronary artery without angina pectoris; I10 Essential (primary) hypertension; I73.9 Peripheral vascular disease, unspecified; E78.49 Other hyperlipidemia; F17.200 Nicotine dependence, unspecified, uncomplicated
CPT/HCPCS: 75635; 93306; Q9967

== ENCOUNTER → 2022-10-29 11:52 | Outpatient (CLI) | payer BC, SELFPAY ==
--- NOTE | 2022-10-29 11:52 | NM_ITS ---
APPROVED REPORT Exam: Nuclear Stress Test Indication: chest pain...Soa..abn ECG Patient Location: Outpatient Stress Tech: Kiki Perez MA Tech:ELFEGO De La Cruz RT(R)(N) Ht: 5 ft 4 in Wt: 124 lbs Bra Size: 38d HR: 60 bpm BP: 193/84 mmHg BSA: 1.60 m2 TID: 1.29 BMI: 21.2 History: chest pain...Soa..abn ECG Procedure: Patient received 0.4 mg of intravenous Lexiscan, resting heart rate 60 bpm, resting blood pressure 193/84 mmHg, with Lexiscan maximum heart rate achieved was 99 bpm which is Less than 85 % of the maximum predicted heart rate and blood pressure was 194/95 mmHg. With Lexiscan, patient denied any complaint of chest pain. Electrocardiogram Resting electrocardiogram shows sinus rhythm, with Lexiscan there is less than 1.[address] segment depression noted from the baseline EKG. The EKG portion of the Lexiscan is nondiagnostic. Cardiac Stress and Resting SPECT Images: Cardiac Stress and Resting SPECT images were obtained using technetium 99m Myoview 32.9 mCi stress and 10.10 mCi at rest. Gated SPECT analysis of segmental wall motion and calculation of the ejection fraction also done. Prone images were also obtained. Cardiac prone images show uniform myocardial activity without segmental perfusion abnormality, computer derived ejection fraction is 57% with no regional wall motion abnormality, right ventricle is normal size and contractility. Conclusion: 1. The EKG portion of the Lexiscan is nondiagnostic. 2. No scintigraphic evidence of reversible ischemia seen, computer derived ejection fraction is 57% with no regional wall motion abnormality, right ventricle is normal size and contractility, there is mild transient ischemic dilatation of left ventricle of unknown significance seen. 3. Likely normal Lexiscan Myoview study. Electronically signed by : Fernie Gilbert MD 10/29/2022 16:51:28
--- NOTE | 2022-10-29 13:45 | CA_ITS ---
APPROVED REPORT Exam: Pharmacologic Technologist: Kiki Santos, Ht: 5 ft 4 in Wt: 127 lbs BSA: 1.61 m2 HR: 53 bpm BP: 193/84 mmHg Medical History Medications: Aspirin,,,,, Losartan,,,,, BisOPROLOL Fumarate,,,,, Nitroglycerin,,,,, WELLBUTRIN XL,,,,, Stress Test Details Test: LEXISCAN Reason for pharmacologic stress test: physical limitation. HR Resting HR: 60 bpm Max Heart Rate (APMHR): 158.277961 bpm Max HR Achieved: 99 bpm Target HR (85% APMHR): 134.611490 bpm % of APMHR: 62.66 Recovery HR: 77 bpm BP Resting BP: 193/84 mmHg Max BP: 194/95 mmHg Recovery BP: 194.0/95.0 mmHg ECG Resting ECG: Sinus kelsey, T wave abns inferiorly, early repolarization changes. Clinical Exercise duration: 04:00 min Highest Stage Achieved: Stress ECG Conclusion Symptoms: SOA, head & leg discomfort. No CP. Arrhythmais/Ectopy: None ST-T Changes: Nonspecific ST-T changes. Conclusion: Non-diagnostic Lexiscan stress. Myoview images reported separately. Cardiology contacted due to elevated BP, Pt asked to monitor 24 hours and call office if still elevated. Test Summary REST . . . . . . . Resting REST 09:59 . . 60 . 193/ 84 . . Stage 1 01:00 . . 92 . . . . Stage 2 01:00 . . 97 . . . . Stage 3 01:00 . . 91 . 183/ 79 . . Stage 4 01:00 . . 84 . 165/ 89 . Stop exercise at 04:00 RECOVERY 01:00 . . 75 . . . . RECOVERY 02:00 . . 74 . 171/ 89 . . RECOVERY 03:00 . . 84 . 171/ 89 . . RECOVERY 04:00 . . 74 . 194/ 95 . . RECOVERY 04:13 . . 79 . 194/ 95 . . Electronically signed by : Fernie Gilbert MD 10/29/2022 16:48:43
== END ==
LOC: RAD 11:52
PROVIDERS: PCP Family Medicine; Visit Provider Nurse Practitioner Family
DX: R06.00 Dyspnea, unspecified (principal); E78.49 Other hyperlipidemia; I73.9 Peripheral vascular disease, unspecified; F17.200 Nicotine dependence, unspecified, uncomplicated
CPT/HCPCS: 78452; 93017; A9502; J2785

== ENCOUNTER 2022-11-12 07:39 | Day surgery (SDC) | payer BC, SELFPAY ==
[2022-11-12] VITALS (54 sets, daily range): BP systolic 103–185; BP diastolic 41–89; PULSE 55–78; RESP 16–18; TEMP 36.7–37; O2SAT 96–99; BMI 21.6
--- NOTE | 2022-11-12 07:12 | IR_ITS ---
APPROVED REPORT Patient Location: Outpatient Giving Officer: ELFEGO Hills RT (R) PROCEDURES Right femoral arterial access Right femoral artery retrograde angiogram Left femoral arterial access Left retrograde femoral angiogram Bare-metal stent deployment to the left external iliac artery Bare-metal stent deployment to the proximal left common femoral artery INDICATION Peripheral artery disease, Ketan claudication class III Informed consent was obtained prior to the procedure. COMPLICATIONS Per CT report there was a stenosis in the right external iliac artery therefore right femoral arterial access was performed. Retrograde angiography demonstrated the stenosis was actually on the left and the CT report was an accurate Estimated Blood Loss: LESS THAN 10 ML TECHNIQUE 1% lidocaine used anesthetize right groin the right femoral nares accessed via Salinger technique and a 5 Chadian sheath was placed in the right femoral artery. Retrograde angiography was performed which demonstrated wide patency of the right external iliac artery. The CT report indicated there was a moderate 50% stenosis in the right external iliac artery however angiography clearly demonstrated the stenosis was on the left. At this point 1% lidocaine was used anesthetize the left groin the left femoral was accessed via Salinger technique. A 5 Chadian sheath was placed in the left femoral artery and retrograde angiography was performed. Following this therapeutic heparin was administered and the 5 Chadian sheath was exchanged for a 6 Chadian sheath. An 8 mm x 27 mm balloon mounted stent was deployed in the left external iliac artery at 10 naomi reducing the stenosis. There was a dissection at the edge of the stent therefore a 7 mm x 40 mm self-expanding stent was placed distal to the first 1 yet still overlapping. The 8 mm balloon was advanced and deployed at 3 naomi. A small dissection persisted therefore an additional 7 mm x 20 mm self-expanding stent was placed distally in the left external iliac artery and landed it in the proximal left common femoral artery. A 7 mm balloon was then advanced and deployed at 5 and then 8 naomi to post dilate. Excellent angiograph results were obtained at the end the procedure the apparatus was removed the patient was transferred to the postop putting in stable addition for sheath removal ANGIOGRAPHIC RESULTS Distal abdominal aorta is widely patent with bifurcating stents extending into each common iliac artery Right common and external external iliac arterial stents are widely patent with a 40% stenosis in the mid right common femoral artery at the sheath insertion site Left common iliac artery stent is widely patent however there is a distal 40% stenosis in the external iliac artery stent followed by 60 to 70% stenosis immediately distal to the stent in the left external iliac artery. There is additional 50% stenoses throughout the external iliac artery and into the left common femoral artery IMPRESSION Peripheral artery disease as described above Successful percutaneous revascularization of the left external iliac artery extending to the proximal left common femoral artery severe disease reduced to 0% with 3 bare-metal stents as described above PLAN 1. Aggressive risk factor modification 2. Control of hypertension 3. Avoidance of tobacco products Electronically signed by : Kolby Felix MD 11/12/2022 10:17:18
--- NOTE | 2022-11-12 10:33 | SUR.PHASEII ---
pt called out stating her chest was hurting, Dr. Felix notified. verbal order given for EKG and 2mg Morphine.
--- NOTE | 2022-11-12 10:37 | ECG_ITS ---
APPROVED REPORT Exam: Resting ECG HR:73 bpm ECG Measurements Heart Rate 73 AXES MO 138 P 70 QRSd 93 QRS 33 QT 431 T 56 QTc 456 Conclusion SINUS RHYTHM POSSIBLE RIGHT VENTRICULAR CONDUCTION DELAY [RSR (QR) IN V1/V2] NONSPECIFIC T-WAVE ABNORMALITY BORDERLINE ECG UNCONFIRMED REPORT Electronically signed by : Timoteo Issa MD 11/13/2022 09:33:30
--- NOTE | 2022-11-12 10:39 | SUR.PHASEII ---
EKG obtained at 1037, given to
[2022-11-12 10:54] LABS: CATHL Activated Clotting Time 285 SEC (74-125)
--- NOTE | 2022-11-12 14:44 | SUR.PHASEII ---
Lamonte in pharmacy spoke with patient.
--- NOTE | 2022-11-12 14:55 | HMH.PHACL ---
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
== END 2022-11-12 16:54 | disposition home or self-care (01) ==
PROVIDERS: PCP Family Medicine; Visit Provider Internal Medicine
DX: I25.10 Atherosclerotic heart disease of native coronary artery without angina pectoris (principal); I10 Essential (primary) hypertension; E78.5 Hyperlipidemia, unspecified; F17.210 Nicotine dependence, cigarettes, uncomplicated; Z79.01 Long term (current) use of anticoagulants; I70.202 Unspecified atherosclerosis of native arteries of extremities, left leg; I77.1 Stricture of artery; Z79.899 Other long term (current) drug therapy
CPT/HCPCS: 37221; 37226; 85347; 93005; 99152; 99153; C1725; C1769; C1876; C1894; J1644; J2405; J2720; Q9966

== ENCOUNTER 2022-12-04 06:54 | Outpatient (CLI) | payer BC, SELFPAY ==
[2022-12-04 07:20] VITALS: BP 149/84; PULSE 57; RESP 15; TEMP 36.1; O2SAT 100
[2022-12-04 07:26] VITALS: BMI 21.4
[2022-12-04 07:36] LABS: Anion Gap 11.3 mEq/L (5-15); Blood Urea Nitrogen 13 mg/dl (7-17); Calcium 8.6 mg/dl (8.4-10.2); Carbon Dioxide 27 mmol/L (22.0-30.0); Chloride 102 mmol/L (98-107); Creatinine Clearance Estimated 52 mL/min (50-200); Estimated Glomerular Filt Rate 85 ml/min (>60); GFR (African American) 103 ML/MIN (>60); Glucose 107 mg/dl (74-100); Potassium 3.3 mmoL/L (3.5-5.1); Sodium 137 mmol/L (136-145)
[2022-12-04 07:43] VITALS: PULSE 57
[2022-12-04 07:54] VITALS: BP 139/69; PULSE 53; RESP 17; O2SAT 98
[2022-12-04 08:06] VITALS: BP 144/70; PULSE 58; RESP 17; O2SAT 100
--- NOTE | 2022-12-04 08:19 | CA_ITS ---
FINAL REPORT TECHNIQUE: Color Doppler, duplex Doppler and sanchez scale sonography of the bilateral neck arterial vasculature was performed. Velocities were measured in the carotid arteries. Stenosis evaluation based on the validated velocity criteria. CLINICAL HISTORY: dizziness, HTN,HLD, Quit smoking 2 weeks ago FINDINGS: The peak systolic velocity of the right common carotid artery is 66 cm/s. The peak systolic velocity of the right internal carotid artery is 113 cm/s and end diastolic velocity 44 cm/s. A small amount of plaque is present. The ICA CCA ratio is 1.8. The right external carotid artery is patent. The right vertebral artery is patent with antegrade flow. The peak systolic velocity of the left common carotid artery is 83 cm/s. The peak systolic velocity of the left internal carotid artery is 123 cm/s and end diastolic velocity 50 cm/s. A small amount of plaque is present. The ICA CCA ratio is 1.8. The left external carotid artery is patent.The left vertebral artery is patent with antegrade flow. IMPRESSION: Less than 50% bilateral carotid stenoses. Bilateral patent vertebral arteries with antegrade flow. If indicated, CTA or MRA could further evaluate. Reviewed, Interpreted and Dictated by Evin Atkins MD Transcribed by Maureen Huber Authenticated and [facility]
== END 2022-12-04 08:06 | disposition home or self-care (01) ==
LOC: RAD 06:54
PROVIDERS: PCP Family Medicine; Visit Provider Nurse Practitioner
DX: R06.00 Dyspnea, unspecified (principal); R07.9 Chest pain, unspecified; R42 Dizziness and giddiness; I25.10 Atherosclerotic heart disease of native coronary artery without angina pectoris; I10 Essential (primary) hypertension; E78.49 Other hyperlipidemia; F17.200 Nicotine dependence, unspecified, uncomplicated; I73.9 Peripheral vascular disease, unspecified; R94.31 Abnormal electrocardiogram [ECG] [EKG]
CPT/HCPCS: 75574; 80048; 93880; Q9967

== ENCOUNTER 2022-12-16 08:27 | Day surgery (SDC) | payer BC, SELFPAY ==
[2022-12-16] VITALS (14 sets, daily range): BP systolic 143–214; BP diastolic 74–132; PULSE 48–61; RESP 16–20; TEMP 36.4–36.9; O2SAT 94–99; BMI 21.6
--- NOTE | 2022-12-16 07:22 | IR_ITS ---
APPROVED REPORT Patient Location: Outpatient PROCEDURES Left heart catheterization Left ventriculogram Selective coronary angiogram INDICATION Coronary artery disease, Angina pectoris Informed consent was obtained prior to the procedure. COMPLICATIONS None Estimated Blood Loss: Less than 10 mls TECHNIQUE One percent lidocaine used to anesthetize the right anterior aspect of the wrist. The right radial artery was accessed via the Seldinger technique. A 6 Pashto sheath was placed in the right radial artery. 150 mg magnesium sulfate, 800 mcg of nitroglycerin, 1mg Lidocaine and 5000 U Heparin were given through the arterial sheath. The papa catheter was also used to perform left heart catheterization, left ventriculogram and selective coronary angiogram. At the end of the procedure the sheath was removed good hemostasis was achieved using Traclet band, patient was transferred to the postop holding area in stable condition. ANGIOGRAPHIC RESULTS The left main artery Normal The left anterior descending artery Has proximal calcified 70% stenosis with an additional mid vessel 60 to 70% stenosis. First diagonal artery has an ostial 90% stenosis The circumflex artery Is dominant gives rise to a large ramus intermedius which has a proximal 90% stenosis followed by a proximal 70 to 80% stenosis. The circumflex artery itself has a proximal concentric 70% stenosis The right coronary artery Is non-dominant and has proximal 70 to 80% stenosis with a mid vessel 90% stenosis The MENDES ventriculogram reveals Normal 65% The left ventricular end-diastolic pressure 10 mmHg IMPRESSION Severe three-vessel coronary disease as described above Normal ejection fraction Normal left ventricular end-diastolic pressure PLAN 1. Refer to [facility] for consideration of bypass surgery 2. Aggressive risk factor modification 3. Better control of hypertension Electronically signed by : Kolby Felix MD 12/16/2022 14:51:17
[2022-12-16 09:03] LABS: Basophils # 0.1 K/mm3 (0-0.2); Basophils % 0.9 % (0.1-2.0); Eosinophils # 0.3 K/mm3 (0.0-0.4); Eosinophils % 4.7 % (0.1-12.0); Hematocrit 40.5 % (37.0-47.0); Hemoglobin 13.5 g/dL (12.2-16.2); Lymphocytes # 1.4 K/mm3 (0.7-4.5); Lymphocytes % 25.6 % (10-50); Mean Corpuscular HGB Conc 33.3 g/dL (31.8-35.4); Mean Corpuscular Hemoglobin 29.4 pg (27.0-31.2); Mean Corpuscular Volume 88.1 fl (81-99); Mean Platelet Volume 7.5 fl (7.4-10.4); Monocytes # 0.4 K/mm3 (0.1-1.0); Monocytes % 7.3 % (1.7-9.3); Neutrophils # 3.4 K/mm3 (1.8-7.8); Neutrophils % 61.4 % (37.0-80.0); Platelet Count 374 K/mm3 (142-424); Red Blood Count 4.59 M/mm3 (4.20-5.40); Red Cell Distribution Width 14.3 % (11.5-17.5); White Blood Count 5.5 K/mm3 (4.8-10.8)
[2022-12-16 09:08] LABS: Blood Urea Nitrogen 11 mg/dl (7-17); Calcium 9.1 mg/dl (8.4-10.2); Carbon Dioxide 28 mmol/L (22.0-30.0); Chloride 100 mmol/L (98-107); Creatinine Clearance Estimated 53 mL/min (50-200); Estimated Glomerular Filt Rate 73 ml/min (>60); GFR (African American) 88 ML/MIN (>60); Glucose 100 mg/dl (74-100); Sodium 139 mmol/L (136-145)
== END 2022-12-16 14:39 | disposition home or self-care (01) ==
PROVIDERS: PCP Family Medicine; Visit Provider Internal Medicine
DX: I25.118 Atherosclerotic heart disease of native coronary artery with other forms of angina pectoris (principal); R93.89 Abnormal findings on diagnostic imaging of other specified body structures; Z79.899 Other long term (current) drug therapy; Z79.01 Long term (current) use of anticoagulants; F17.210 Nicotine dependence, cigarettes, uncomplicated; Z95.820 Peripheral vascular angioplasty status with implants and grafts
CPT/HCPCS: 80048; 85025; 93458; 99152; C1725; C1769; J1644; Q9967

== ENCOUNTER 2023-03-04 09:53 | Outpatient (RCR) | payer BC, SELFPAY | END 2023-04-21 15:30 | disposition home or self-care (01) | LOC: PT 09:53 | PROVIDERS: Visit Provider Thoracic Surgery (Cardiothoracic Vascular Surgery) | DX: I25.10 Atherosclerotic heart disease of native coronary artery without angina pectoris (principal); Z95.1 Presence of aortocoronary bypass graft | CPT/HCPCS: 93798 ==

== ENCOUNTER → 2023-03-08 14:20 | Outpatient (CLI) | payer BC, SELFPAY ==
[2023-03-08 15:15] LABS: Alanine Aminotransferase 35 U/L (12-78); Albumin Level 4.9 g/dl (3.5-5.0); Alkaline Phosphatase 94 U/L (38-126); Aspartate Amino Transferase 32 U/L (14-36); Bilirubin,Indirect 0.6 mg/dL (0.0-0.9); Bilirubin,Total 0.6 mg/dl (0.2-1.3); Bilirubin,Unconjugated 0.8 mg/dL (0.0-1.1); Chol/HDL Ratio 4.5 (1-3.5); Cholesterol 181 mg/dl (140-200); HDL Cholesterol 40 mg/dl (40-60); Total Protein,Serum 7.6 g/dl (6.3-8.2); Triglycerides 206 mg/dl (30-150); VLDL Cholesterol 41 mg/dL (0-40)
[2023-03-08 15:25] LABS: Direct LDL Cholesterol 90.91 mg/dL (100-129)
== END ==
PROVIDERS: PCP Nurse Practitioner Family; Visit Provider Internal Medicine
DX: E78.5 Hyperlipidemia, unspecified (principal); I11.9 Hypertensive heart disease without heart failure; R06.09 Other forms of dyspnea
CPT/HCPCS: 36415; 80061; 80076

== ENCOUNTER → 2023-04-16 14:05 | Outpatient (CLI) | payer BC, SELFPAY ==
[2023-04-16 15:15] LABS: Blood Urea Nitrogen 18 mg/dl (7-17); Estimated Glomerular Filt Rate 50 ml/min (>60); GFR (African American) 61 ML/MIN (>60)
== END ==
PROVIDERS: PCP Nurse Practitioner Family; Visit Provider Internal Medicine
DX: R07.9 Chest pain, unspecified (principal)
CPT/HCPCS: 36415; 82565; 84520

== ENCOUNTER → 2023-04-27 13:41 | Outpatient (CLI) | payer BC, SELFPAY ==
--- NOTE | 2023-04-27 13:41 | CT_ITS ---
FINAL REPORT CLINICAL HISTORY: claudication COMPARISON: 10/19/2022 FINDINGS: Post contrast axial imaging of the aorta and bilateral lower extremity was obtained and reviewed. This study was performed with techniques to keep radiation doses as low as reasonably achievable (ALARA). Individualized dose reduction techniques using automated exposure control or adjustment of mA and/or kV according to the patient's size were employed. There is no evidence of aortic aneurysm. There is no evidence of aortic stenosis. The celiac axis, superior mesenteric artery and inferior mesenteric artery are patent. There is calcification at the origin of the celiac axis. This is stable. There is no evidence of renal artery stenosis. There are bilateral common iliac artery stents. They are patent. The right stent extends to the common femoral artery. There is stable, approximately 50% stenosis near the common femoral artery. The left common iliac artery/stent is patent. The left external iliac artery is patent. There is mild stenosis of the distal left external iliac artery. Right: The right common femoral artery, deep femoral artery and superficial femoral artery are all patent. Atherosclerotic disease of the right superficial femoral artery appears unchanged from prior. The popliteal artery is patent. There is no stenosis of the popliteal artery. There is a two-vessel runoff in the calf. This is unchanged from prior. Left: The left common femoral artery, deep femoral artery and superficial femoral artery are all patent. Atherosclerotic disease of the left superficial femoral artery with areas of mild stenosis appears similar to prior. There is no stenosis of the popliteal artery. There is a two-vessel runoff in the proximal calf., However, at the level of the proximal leg, the anterior tibial artery has a short segment occlusion with distal reconstitution. This appears similar to prior. Review of the remaining abdomen and pelvis demonstrates no evidence of mass or adenopathy. There is no fluid collection or acute inflammatory process. IMPRESSION: No evidence of aneurysm or dissection. Stable appearance to the mesenteric vessels. Stable appearance to the iliac and lower extremity arteries as detailed above. No new abnormality. Authenticated and [facility]
== END ==
PROVIDERS: PCP Nurse Practitioner Family; Visit Provider Physician Assistant
DX: I70.213 Atherosclerosis of native arteries of extremities with intermittent claudication, bilateral legs (principal)
CPT/HCPCS: 75635; Q9967

== ENCOUNTER 2023-05-18 08:23 | Day surgery (SDC) | payer BC, SELFPAY ==
[2023-05-18] VITALS (17 sets, daily range): BP systolic 114–164; BP diastolic 63–81; PULSE 54–70; RESP 18; O2SAT 95–100; BMI 21.8
--- NOTE | 2023-05-18 07:12 | IR_ITS ---
APPROVED REPORT Patient Location: Outpatient PROCEDURES Right femoral arterial access Right retrograde femoral angiogram Right superficial femoral artery antegrade angiogram Right popliteal artery antegrade angiogram Right anterior tibialis right posterior tibialis and right peroneal artery antegrade angiogram INDICATION Peripheral artery disease, Abnormal YAHAIRA, Abnormal CTA, Ketan claudication class III Informed consent was obtained prior to the procedure. COMPLICATIONS None Estimated Blood Loss: Less than 10 mls TECHNIQUE 1% lidocaine used anesthetize right groin the right femoral artery is accessed via the Salinger technique and a 4 Maltese sheath is placed in the right femoral artery. Retrograde angiography of the femoral artery was performed which opacified the iliac arteries. Following this a stepwise angiogram was taken down the SFA popliteal artery and proximal portion of the anterior and posterior tibialis artery as well as the peroneal artery. This was performed by retrograde injection of the right femoral artery sheath with subsequent antegrade angiography of the SFA popliteal arteries and three-vessel runoff below the knee. At the end of the procedure the apparatus was removed the patient was transferred to the postop putting in stable condition for sheath removal ANGIOGRAPHIC RESULTS The right common and external iliac arteries are widely patent. Stents originate from the distal abdominal aorta and are widely patent through the iliac arteries. The right common iliac artery is occluded. Right common femoral artery has eccentric 30% stenosis. The right profunda femoris artery is patent. There is 50% atheromatous plaque in the midportion of the profunda femoris. The right superficial femoral artery is ostially diseased with long ostial to proximal 50 to 60% narrowing followed by eccentric 60 and 70% stenoses. The midportion of the SFA is larger in caliber and then has a focal 80 to 90% stenosis in Reese's canal. The right popliteal artery is patent with moderate atheromatous plaque. The right anterior tibialis artery is patent at its origin and proximal third of the vessel.. The right posterior tibialis artery is subtotally occluded in the proximal segment. The right peroneal artery is patent. IMPRESSION Ostially and proximally diseased SFA which is best managed medically at this time as revascularizing this vessel would be complex and would involve the bifurcation of the profunda femoris artery thereby jeopardizing that vessel. Mid vessel SFA disease which is also best managed medically PLAN 1. Recommend tobacco cessation 2. Xarelto 2.5 twice daily plus aspirin 81 mg daily 3. Physical therapy 4. LDL less than 55 to achieve that high intensity statin Electronically signed by : Kolby Felix MD 05/18/2023 11:10:33
[2023-05-18 08:52] LABS: Basophils # 0.1 K/mm3 (0-0.2); Basophils % 0.6 % (0.1-2.0); Eosinophils # 0.2 K/mm3 (0.0-0.4); Eosinophils % 2.8 % (0.1-12.0); Hematocrit 38.3 % (37.0-47.0); Hemoglobin 13.2 g/dL (12.2-16.2); Lymphocytes # 1.6 K/mm3 (0.7-4.5); Lymphocytes % 18.7 % (10-50); Mean Corpuscular HGB Conc 34.4 g/dL (31.8-35.4); Mean Corpuscular Hemoglobin 32.3 pg (27.0-31.2); Mean Corpuscular Volume 93.9 fl (81-99); Mean Platelet Volume 7.4 fl (7.4-10.4); Monocytes # 0.6 K/mm3 (0.1-1.0); Monocytes % 6.8 % (1.7-9.3); Neutrophils # 5.9 K/mm3 (1.8-7.8); Neutrophils % 71.1 % (37.0-80.0); Platelet Count 315 K/mm3 (142-424); Red Blood Count 4.08 M/mm3 (4.20-5.40); Red Cell Distribution Width 14.1 % (11.5-17.5); White Blood Count 8.2 K/mm3 (4.8-10.8)
[2023-05-18 08:55] LABS: Chloride 106 mmol/L (98-107); Sodium 140 mmol/L (136-145)
[2023-05-18 08:56] LABS: Potassium 3.6 mmoL/L (3.5-5.1)
[2023-05-18 08:58] LABS: Blood Urea Nitrogen 15 mg/dl (7-17); Creatinine Clearance Estimated 52 mL/min (50-200); Estimated Glomerular Filt Rate 56 ml/min (>60); GFR (African American) 68 ML/MIN (>60)
[2023-05-18 08:59] LABS: Anion Gap 11.6 mEq/L (5-15); Calcium 9.3 mg/dl (8.4-10.2); Carbon Dioxide 26 mmol/L (22.0-30.0); Glucose 108 mg/dl (74-100)
== END 2023-05-18 14:20 | disposition home or self-care (01) ==
PROVIDERS: PCP Nurse Practitioner Family; Visit Provider Internal Medicine
DX: I25.10 Atherosclerotic heart disease of native coronary artery without angina pectoris (principal); R94.31 Abnormal electrocardiogram [ECG] [EKG]; I77.1 Stricture of artery; F17.210 Nicotine dependence, cigarettes, uncomplicated; E78.5 Hyperlipidemia, unspecified; I70.211 Atherosclerosis of native arteries of extremities with intermittent claudication, right leg; I10 Essential (primary) hypertension
CPT/HCPCS: 36247; 75710; 80048; 85025; 99152; C1725; C1769; J1644; Q9967

== ENCOUNTER 2023-08-10 08:33 | Outpatient (CLI) | payer BC, SELFPAY ==
--- NOTE | 2023-08-10 08:33 | CA_ITS ---
APPROVED REPORT EXAM: Comprehensive 2D, Doppler, and color-flow Echocardiogram Press [employer]s: Courtney Fischer, JOSE, RVS Ht: 5 ft 4 in Wt: 129lbs BSA: 1.62 BP: 125/47 mmHg Indications: CABG, HTN, HLD, Ex-smoker, SOB, PVD 2D Dimensions LVDd 3.27 cm LVEF (Visual) 55.80 % LVDs 2.35 cm LA Volume 24.40 mL Aortic Root 2.36 cm LA Volume Index 15.10 mL/m2 (M/F) 16-34 Left Atrium 2.47 cm EF AP4 65.10 % LVOT 1.92 cm (M/F) 1.5-2.5 GL Strain -16.4 % M-Mode Dimensions RVDd 1.37 cm (0.9-2.6) LVDd 3.27 cm (3.5-5.7) Ao Diam 2.33 cm (2.0-3.7) LVDs 2.51 cm (3.5-5.7) IVSd 0.70 cm (0.6-1.1) PWd 0.82 cm (0.6-1.1) EF (Teich) 74.70% EPSs 0.29 cm FS 38.23% EDV (Teich) 89.10 mL TAPSE 1.31 (<1.7) ESV (Teich) 22.50 mL LV Diastology E Decel Time 231 (160-240 msec) E/A Ratio 2.05 MED E' 10.0 (>= 7 cm/sec) MED A' 9.50 cm/s E'/MED E' Ratio 8.92 (<= 14) LAT E' 12.5 (>= 10 cm/sec) LAT A' 5.80 cm/s E/LAT E' Ratio 7.14 (<= 14) Aortic Valve LVOT Max 107.0 (70-110 cm/s) SANDRO Index 1.73 cm2/m2 LVOT VTI 25.07 cm AoV Peak Adam. 117.0 (50-130 cm/s) AO Mean GR. 2.70 (<5 mmHg) AO VTI 25.8 (18-25 cm) SANDRO (VTI) 2.81 (2.5-4.5 cm2) Mitral Valve MV E Max Adam. 89.0 (40-130 cm/s) MV A Velocity 44.0 (40-130 cm/s) E/A Ratio 2.05 MV Decel. Time 231 (160-240 ms) MV Mean Gr. 0.80 (<2mmHg) Tricuspid Valve TR P. Velocity 232.00 cm/s RAP Estimate 10.00 mmHg RVSP 31.50 mmHg Left Ventricle The left ventricle is normal size. The left ventricular systolic function is normal. The left ventricular ejection fraction is within the normal range. There is normal left ventricular wall thickness. There is mild hypokinesis of the basal septal and anteroseptal LV alcala. The left ventricular diastolic function is normal. LVEF is 60%. Right Ventricle The right ventricle is mildly dilated. The right ventricular systolic function is normal. Atria The left atrium size is normal. The right atrium size is normal. There is no Doppler evidence of interatrial shunt. Aortic Valve The aortic valve is mildly thickened. There is no aortic valvular stenosis. No aortic regurgitation is present. Mitral Valve The mitral valve leaflets are mildly thickened. No evidence of mitral valve stenosis. Mild mitral regurgitation. Tricuspid Valve The tricuspid valve leaflets are thin and pliable. Mild tricuspid regurgitation. RVSP is 20-25 mmHg. Pulmonic Valve The pulmonary valve is normal in structure. Trace pulmonic regurgitation. Great Vessels The aortic root is normal in size. The ascending aorta is not well-visualized. IVC is normal in size and collapses >50% with inspiration. Pericardium There is no pericardial effusion. Other Information Study Quality: Fair Conclusion Normal biventricular systolic function. Mild hypokinesis of the basal septal and anteroseptal LV alcala. Mild RV dilation. Mild MR, mild TR. Electronically signed by : Cassia Tan MD 08/13/2023 22:55:13
== END 2023-08-10 23:59 ==
LOC: RT 08:33
PROVIDERS: PCP Nurse Practitioner Family; Visit Provider Internal Medicine
DX: R07.9 Chest pain, unspecified (principal); R94.31 Abnormal electrocardiogram [ECG] [EKG]; I25.10 Atherosclerotic heart disease of native coronary artery without angina pectoris; I10 Essential (primary) hypertension; E78.5 Hyperlipidemia, unspecified; I73.9 Peripheral vascular disease, unspecified; Z87.891 Personal history of nicotine dependence; Z95.1 Presence of aortocoronary bypass graft
CPT/HCPCS: 93306

== ENCOUNTER 2023-10-18 12:31 | Outpatient (CLI) | payer BC, SELFPAY ==
[2023-10-18 12:29] LABS: Microscopic, Urine URINE MICROSCOPIC (MICROSCOPIC)
[2023-10-18 13:09] LABS: Basophils # 0.1 K/mm3 (0-0.2); Basophils % 1.6 % (0.1-2.0); Eosinophils # 0.2 K/mm3 (0.0-0.4); Eosinophils % 4.4 % (0.1-12.0); Hematocrit 40.2 % (37.0-47.0); Hemoglobin 13.2 g/dL (12.2-16.2); Lymphocytes # 1.9 K/mm3 (0.7-4.5); Lymphocytes % 34.4 % (10-50); Mean Corpuscular HGB Conc 32.9 g/dL (31.8-35.4); Mean Corpuscular Hemoglobin 30.8 pg (27.0-31.2); Mean Corpuscular Volume 93.8 fl (81-99); Mean Platelet Volume 7.9 fl (7.4-10.4); Monocytes # 0.4 K/mm3 (0.1-1.0); Monocytes % 7.3 % (1.7-9.3); Neutrophils # 2.8 K/mm3 (1.8-7.8); Neutrophils % 52.3 % (37.0-80.0); Platelet Count 361 K/mm3 (142-424); Red Blood Count 4.29 M/mm3 (4.20-5.40); Red Cell Distribution Width 15.2 % (11.5-17.5); White Blood Count 5.4 K/mm3 (4.8-10.8)
[2023-10-18 13:41] LABS: Chloride 105 mmol/L (98-107); Potassium 4.3 mmoL/L (3.5-5.1); Sodium 140 mmol/L (136-145)
[2023-10-18 13:43] LABS: Alanine Aminotransferase 25 U/L (12-78); Aspartate Amino Transferase 31 U/L (14-36); Blood Urea Nitrogen 15 mg/dl (7-17); Estimated Glomerular Filt Rate 45 ml/min (>60); GFR (African American) 55 ML/MIN (>60)
[2023-10-18 13:44] LABS: Albumin Level 4.4 g/dl (3.5-5.0); Albumin/Globulin Ratio 1.8 (1.1-1.8); Alkaline Phosphatase 98 U/L (38-126); Anion Gap 13.3 mEq/L (5-15); Bilirubin,Total 0.5 mg/dl (0.2-1.3); Calcium 9.7 mg/dl (8.4-10.2); Carbon Dioxide 26 mmol/L (22.0-30.0); Cholesterol 223 mg/dl (140-200); Globulin 2.4 g/dL (1.3-3.2); Glucose 102 mg/dl (74-100); HDL Cholesterol 37 mg/dl (40-60); Total Protein,Serum 6.8 g/dl (6.3-8.2); Triglycerides 235 mg/dl (30-150); VLDL Cholesterol 47 mg/dL (0-40)
[2023-10-18 13:55] LABS: Direct LDL Cholesterol 93.78 mg/dL (100-129)
[2023-10-18 13:56] LABS: Appearance,Urine CLEAR (Clear); Bilirubin,Urine Negative (Negative); Blood, Urine Negative (Negative); Color,Urine YELLOW (Yellow); Glucose,Urine (UA) Negative (Negative); Ketones,Urine Negative (Negative); Leukocyte Esterase,Urine Negative (Negative); Nitrate,Urine Negative (Negative); Protein,Urine Negative (Negative); Urobilinogen,Urine 0.2 EU/dl (0.2)
[2023-10-18 14:04] LABS: Bacteria,Urine Trace /lpf; Squamous Epithelial Cell,Urine Occasional #/hpf (0-5); WBC,Urine Occasional #/hpf (0-3)
[2023-10-18 14:13] LABS: Thyroid Stimulating Hormone 2.04 uIU/mL (0.465-4.68)
[2023-10-18 14:46] LABS: Free T4 (Free Thyroxine) 1.62 ng/dl (0.78-2.19)
[2023-10-18 15:39] LABS: Hemoglobin A1C 5.6 % (4.0-6.0)
[2023-10-18 15:50] LABS: 25-OH Vitamin D, Total 25.8 ng/mL (30-100)
[2023-10-18 17:36] LABS: Vitamin B12 830 pg/mL (239-931)
== END 2023-10-18 23:59 ==
LOC: LAB.DROPOF 12:32
PROVIDERS: PCP Nurse Practitioner Family; Visit Provider Nurse Practitioner Family
DX: I25.10 Atherosclerotic heart disease of native coronary artery without angina pectoris (principal); I10 Essential (primary) hypertension; K21.9 Gastro-esophageal reflux disease without esophagitis; I73.9 Peripheral vascular disease, unspecified; G62.89 Other specified polyneuropathies; E78.49 Other hyperlipidemia; R73.09 Other abnormal glucose; E78.1 Pure hyperglyceridemia; R80.9 Proteinuria, unspecified; B96.89 Other specified bacterial agents as the cause of diseases classified elsewhere; Z87.891 Personal history of nicotine dependence; Z79.899 Other long term (current) drug therapy
CPT/HCPCS: 80053; 80061; 81001; 82306; 82607; 83036; 84156; 84439; 84443; 85025; 87086

== ENCOUNTER 2023-11-04 07:18 | Outpatient (CLI) | payer BC, SELFPAY ==
--- NOTE | 2023-11-04 07:19 | MM_ITS ---
PROCEDURE INFORMATION: Exam: MG Bilateral Screening 3D Mammography Exam date and time: 11/04/2023 7:52 AM Age: 63 years old Clinical indication: Screening mammogram TECHNIQUE: Imaging protocol: Bilateral Screening tomosynthesis and 2D mammography including computer-aided detection (CAD) when performed. COMPARISON: 1. MG MM DIG SCREENING MAMM BI W/CAD 06/09/2022 8:02 AM 2. MG DMSB DIG MAMM-SCREEN JOSEPHINE W/CAD 05/07/2017 4:24 PM 3. MG DMSB DIG MAMM-SCREEN JOSEPHINE 05/24/2014 4:41 PM 4. MG DIGMAMMS MAMMOGRAM SCREEN-[facility]TE CARRIER N/C 11/05/2008 4:47 PM FINDINGS: MAMMOGRAPHY: Breast composition: There are scattered areas of fibroglandular density. Mass: None. Architectural distortion: No new or suspicious architectural distortion. Calcifications: No new or suspicious calcifications are present Asymmetric density: No new or suspicious asymmetric density is present Skin thickening: None. Axillary adenopathy: None. IMPRESSION: No mammographic evidence of malignancy. Recommend annual screening mammography unless otherwise clinically indicated. ASSESSMENT: BI-RADS category 1: Negative.
--- NOTE | 2023-11-04 07:19 | CT_ITS ---
FINAL REPORT TECHNIQUE: Axial CT images of the chest were obtained without contrast. Low-dose protocol was utilized. This study was performed with techniques to keep radiation doses as low as reasonably achievable (ALARA). Individualized dose reduction techniques using automated exposure control or adjustment of mA and/or kV according to the patient's size were employed. CLINICAL HISTORY: lung cancer screening former smoker quit 1 year ago, 1/2ppd x40 years COMPARISON: 10/07/2022 and 10/27/2018 FINDINGS: CT CHEST WITHOUT, LOW DOSE SCREENING CT Di Vol: 2.90 mGy DLP: 96.38 mGy*cm There is no axillary, mediastinal, or hilar adenopathy. Interval median sternotomy. The heart size is normal. There are diffuse coronary artery calcifications. There is no pleural or pericardial effusion. There is moderate emphysema. The lung windows show a stable 2 mm lateral left upper lobe nodule on image 22 and a stable 3 mm lateral left lower lobe nodule on image 64. There is no new mass or nodule identified. Limited images of the upper abdomen demonstrate no acute findings. IMPRESSION: LR Category 1: 12 month follow-up low-dose chest CT is recommended. Reviewed, Interpreted and Dictated by Martin Box III, MD Transcribed by Jenni Salter Authenticated and [facility]
== END 2023-11-04 23:59 ==
LOC: RAD 07:19
PROVIDERS: PCP Nurse Practitioner Family; Visit Provider Nurse Practitioner Family
DX: Z87.891 Personal history of nicotine dependence (principal); Z12.2 Encounter for screening for malignant neoplasm of respiratory organs; R93.89 Abnormal findings on diagnostic imaging of other specified body structures; R91.8 Other nonspecific abnormal finding of lung field; Z12.31 Encounter for screening mammogram for malignant neoplasm of breast
CPT/HCPCS: 71271; 77063; 77067

== ENCOUNTER 2023-11-18 08:38 | Outpatient (CLI) | payer BC, SELFPAY ==
--- NOTE | 2023-11-18 08:39 | XR_ITS ---
FINAL REPORT CLINICAL HISTORY: screening osteoporosis COMPARISON: None FINDINGS: Using L1-4, the bone mineral density of the spine is 0.726 g/cm2, corresponding to T-score of -2.9 which is consistent with osteoporosis. Using the left hip, the bone mineral density of the femoral neck is 0.568 g/cm2, corresponding to a T-score of -3.1 which is consistent with osteoporosis. Using the right hip, the bone mineral density of the femoral neck is 0.554 g/cm2, corresponding to a T-score of -2.7 which is consistent with osteoporosis. FRAX not reported because some T-score at or above -2.5. NOTE: T-score: Standard deviation compared with peak bone mass of young adult mean. *Following the recommendations of the International Society of Bone densitometry, classification of hip BMD is based on the lower of two T-scores; total hip or femoral neck. IMPRESSION: Diminished bone mineral density consistent with osteoporosis. Reviewed, Interpreted and Dictated by Evin Atkins MD Transcribed by Jenni Salter Authenticated and [facility]
== END 2023-11-18 23:59 | disposition home or self-care (01) ==
LOC: RAD 08:39
PROVIDERS: PCP Nurse Practitioner Family; Visit Provider Nurse Practitioner Family
DX: Z13.820 Encounter for screening for osteoporosis (principal)
CPT/HCPCS: 77080

== ENCOUNTER 2023-12-17 12:44 | Outpatient (CLI) | payer BC, SELFPAY ==
[2023-12-17] MEDS: DENOSUMAB 60 MG/ML SYRINGE SQ (09:25)
[2023-12-17 13:13] VITALS: BP 108/48; PULSE 55; RESP 18; O2SAT 100
== END 2023-12-17 13:13 | disposition home or self-care (01) ==
LOC: INF 12:44
PROVIDERS: PCP Nurse Practitioner Family; Visit Provider Nurse Practitioner Family
DX: M81.0 Age-related osteoporosis without current pathological fracture (principal)
CPT/HCPCS: 96372; J0897

== ENCOUNTER 2023-12-22 10:56 | Day surgery (SDC) | payer BC, SELFPAY ==
[2023-12-20 13:21] VITALS: BMI 22.6
[2023-12-22 11:30] VITALS: BP 139/72; PULSE 58; RESP 18; TEMP 36.3; O2SAT 97
[2023-12-22] MEDS: LACTATED RINGERS 1000ML 1,000 ML 25 ML IV (11:39)
[2023-12-22 12:35] VITALS: BP 94/53; PULSE 55; RESP 14; TEMP 36.8; O2SAT 97
--- NOTE | 2023-12-22 12:38 | HMH.SCOPE ---
Procedure: Date: 12/22/23 Patient Date of :: 1960 Procedure Performed:: Colonoscopy Indications:: The patient is a 63-year-old who presents for surveillance colonoscopy for history of polyps in the past. Performing Provider:: Sebastian Newby MD Referring Provider:: Arlette Davies APRN Sedation:: See RN records Procedure:: After placing the patient in the left lateral decubitus position, the colonoscopy was gently inserted into the rectum and under direct visualization advanced to the cecum which was identified by transillumination in the right lower quadrant, identification of the ileocecal valve, appendiceal orifice, and cecal strap. Color, texture, mucosa, and anatomy of the colon were carefully examined with the scope. Findings:: The quality of the bowel preparation was excellent. The entire examined colon appeared normal. On retroflexion view there were internal hemorrhoids seen in the rectum. Impression: Normal-appearing colon Recommendations:: Recommend repeat colonoscopy in 5 years for surveillance. Complications:: None Estimated blood obtained (mL): 0 Colonoscopy Component Colonoscopy Component Was a colonoscopy performed during today's procedure?: Yes Recommended follow up colonoscopy of at least 10 years?: Yes
[2023-12-22 12:50] VITALS: BP 130/71; PULSE 58; RESP 14; TEMP 36.7; O2SAT 100
--- NOTE | 2023-12-22 12:58 | EXP.ANES.CKL ---
[facility] Disclaimer: The information contained in this section may have been updated after the patient was seen, as this information can be updated by other users. Medical History Hypokalemia Dizziness Chest pain Abnormal abdominal CT scan Renal artery stenosis Abnormal electrocardiogram [ECG] [EKG] Coronary artery disease Dr. Felix Claudication Dyspnea Hyperlipidemia Tobacco dependence syndrome Occlusive mesenteric ischemia Essential hypertension Established with [facility] cardiology Claudication Coronary arteriosclerosis Peripheral vascular disease Dr. 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 Stenosis of artery of left lower extremity History of cholecystectomy Family History Father Coronary artery disease Hyperlipidemia Hypertension Mother Diabetes Hypertension Sister Coronary artery disease Hypertension Hyperlipidemia Cancer cervical Social History (Updated 12/22/23 @ 11:32 by Taina Marin RN) Smoking Status: Former smoker tobacco type: cigarettes packs per day: 1 second hand exposure: Yes alcohol intake: never counseling provided: none substance use type: denies use current occupational status: retired Travel in the last 8 weeks: None household members: none housing: house number of children: 2 current occupational exposures/hazards: No caffeine: Yes [facility] Anesthesia Checklist Patient Identification Patient Identification: Verbal (Name & ) Structural Data Admitted From: Home Planned Operative Procedure/s: colonoscopy Additional verifications Anesthesia Reactions: No Hx Blood Transfusions: No Blood Transfusion Reaction: No Airway Assessment Mallampati Score:: Class II C-Spine Mobility Assessed: Yes TMJ Mobility Assessed: Yes Dentition: Good Dentition Neurological Assessment Level of Consciousness: Awake, Alert and Appropriate Anesthesia Plan Anesthesia Risk discussed: Yes Anesthesia Plan: Verified ASA Class: II Anesthesia Type: MAC
[2023-12-22 13:05] VITALS: BP 123/78; PULSE 60; RESP 16; TEMP 36.7; O2SAT 100
[2023-12-22 13:15] VITALS: BP 121/72; PULSE 60; RESP 16; TEMP 36.7; O2SAT 100
== END 2023-12-22 13:15 | disposition home or self-care (01) ==
PROVIDERS: PCP Nurse Practitioner Family; Visit Provider Internal Medicine
PROC: (CPT 45378; principal; 2023-12-22 12:00)
DX: Z12.11 Encounter for screening for malignant neoplasm of colon (principal); Z86.010 Personal history of colon polyps; K64.8 Other hemorrhoids
CPT/HCPCS: 45378

== ENCOUNTER 2024-03-27 10:22 | Outpatient (CLI) | payer BC, SELFPAY ==
[2024-03-27 10:26] LABS: Adenovirus F 40/41, stool Not Detected (NotDetected); Astrovirus Not Detected (NotDetected); Campylobacter Not Detected (NotDetected); Clostridium Difficile A/B, PCR Not Detected (NotDetected); Cryptosporidium Not Detected (NotDetected); Cyclospora Cayetanesis Not Detected (NotDetected); Entamoeba histolytica Not Detected (NotDetected); Enteroaggregative E coli Not Detected (NotDetected); Enteropathogenic E coli Not Detected (NotDetected); Enterotoxigenic E coli Not Detected (NotDetected); Giardia lamblia Not Detected (NotDetected); Norovirus Not Detected (NotDetected); Plesimonas Shigalloides, PCR Not Detected (NotDetected); Rotavirus A Not Detected (NotDetected); Salmonella, PCR Not Detected (NotDetected); Sapovirus Not Detected (NotDetected); Shiga-like toxin E coli Not Detected (NotDetected); Shigella Enterovasive E coli Not Detected (NotDetected); Vibrio Cholerae Not Detected (NotDetected); Vibrio, PCR Not Detected (NotDetected); Yersinia Entercolitica, PCR Not Detected (NotDetected)
[2024-03-27 10:43] LABS: Occult Blood,Stool Negative (Negative)
[2024-03-28 16:18] LABS: H. pylori Stool Ag, EIA Negative (Negative)
== END 2024-03-27 23:59 | disposition home or self-care (01) ==
PROVIDERS: PCP Nurse Practitioner Family; Visit Provider Nurse Practitioner Family
DX: R19.7 Diarrhea, unspecified (principal)
CPT/HCPCS: 82272; 87045; 87177; 87338; 87507; G0328

== ENCOUNTER 2024-04-20 14:12 | Outpatient (CLI) | payer BC, SELFPAY ==
[2024-04-20 15:11] LABS: 25-OH Vitamin D, Total 49.5 ng/mL (30-100)
[2024-04-20 16:21] LABS: HIV (1&2) Antibody Rapid NONREACTIVE (NONREACTIVE)
[2024-04-20 20:45] LABS: Chloride 109 mmol/L (98-107); Potassium 4.1 mmoL/L (3.5-5.1); Sodium 138 mmol/L (136-145)
[2024-04-20 20:48] LABS: Anion Gap 11.1 mEq/L (5-15); Blood Urea Nitrogen 16 mg/dl (7-17); Calcium 9.3 mg/dl (8.4-10.2); Carbon Dioxide 22 mmol/L (22.0-30.0); Chol/HDL Ratio 5.7 (1-3.5); Cholesterol 210 mg/dl (140-200); Estimated Glomerular Filt Rate 50 ml/min (>60); GFR (African American) 61 ML/MIN (>60); Glucose 90 mg/dl (74-100); HDL Cholesterol 37 mg/dl (40-60); Triglycerides 194 mg/dl (30-150); VLDL Cholesterol 39 mg/dL (0-40)
[2024-04-20 20:59] LABS: Direct LDL Cholesterol 109.18 mg/dL (100-129)
[2024-04-22 09:32] LABS: HCV Ab Non Reactive (Non Reactive)
== END 2024-04-20 23:59 | disposition home or self-care (01) ==
LOC: LAB.DROPOF 14:12
PROVIDERS: PCP Nurse Practitioner Family; Visit Provider Nurse Practitioner Family
DX: Z11.59 Encounter for screening for other viral diseases (principal); Z11.4 Encounter for screening for human immunodeficiency virus [HIV]; N17.9 Acute kidney failure, unspecified; E55.9 Vitamin D deficiency, unspecified; E78.49 Other hyperlipidemia
CPT/HCPCS: 80048; 80061; 82306; 86803; 87389

== ENCOUNTER 2024-05-07 16:24 | Emergency (ER) | payer BC, SELFPAY ==
[2024-05-07] VITALS (9 sets, daily range): BP systolic 98–154; BP diastolic 58–113; PULSE 54–71; RESP 16–26; TEMP 36.8–36.9; O2SAT 95–100; BMI 21.9
--- NOTE | 2024-05-07 16:38 | ECG_ITS ---
APPROVED REPORT Exam: Resting ECG HR:70 bpm ECG Measurements Heart Rate 70 AXES OR 137 P 57 QRSd 86 QRS 44 QT 431 T 44 QTc 451 Conclusion SINUS RHYTHM NONSPECIFIC ST & T-WAVE ABNORMALITY BORDERLINE ECG UNCONFIRMED REPORT Electronically signed by : Bossman Stock, 05/07/2024 22:54:30
--- NOTE | 2024-05-07 16:38 | XR_ITS ---
PROCEDURE INFORMATION: Exam: XR Chest Exam date and time: 05/07/2024 5:28 PM Age: 64 years old Clinical indication: Pain; Chest pressure; Additional info: Chest pain TECHNIQUE: Imaging protocol: Radiologic exam of the chest. Views: 1 view. COMPARISON: CT ANGIO CHEST 05/07/2024 5:26 PM FINDINGS: Lungs: Unremarkable. Mild hyperlucent changes most pronounced in the upper lobes. Pleural spaces: Unremarkable. No pleural effusion. No pneumothorax. Heart/Mediastinum: Unremarkable. No cardiomegaly. Bones/joints: Unremarkable. IMPRESSION: No acute findings.
--- NOTE | 2024-05-07 16:38 | CT_ITS ---
PROCEDURE INFORMATION: Exam: CTA Chest With Contrast Exam date and time: 05/07/2024 5:26 PM Age: 64 years old Clinical indication: Pain; Chest pressure; Additional info: R/O dissection, cp radiating to back TECHNIQUE: Imaging protocol: Computed tomographic angiography of the chest with contrast. Exam focused on the arteries. 3D rendering (Not supervised by radiologist): MIP and/or 3D reconstructed images were created by the technologist. Radiation optimization: All CT scans at this facility use at least one of these dose optimization techniques: automated exposure control; mA and/or kV adjustment per patient size (includes targeted exams where dose is matched to clinical indication); or iterative reconstruction. Contrast material: ISOVUE; Contrast volume: 80 ml; Contrast route: INTRAVENOUS (IV); COMPARISON: CT LUNG SCREENING 11/04/2023 7:34 AM FINDINGS: Pulmonary arteries: Normal. No pulmonary emboli. Aorta: Unremarkable. No aortic aneurysm. No aortic dissection. Lungs: Bilateral ground-glass regions of opacification. Findings nonspecific however most likely reflect interstitial lung disease. Centrilobular emphysema Pleural spaces: Unremarkable. No pneumothorax. No pleural effusion. Heart: Unremarkable. No cardiomegaly. No pericardial effusion. Coronary arteries: CABG Lymph nodes: Unremarkable. No enlarged lymph nodes. Liver: Decreased density throughout the liver compatible with hepatic steatosis. Bones/joints: Sternotomy. Thoracic spondylosis with multilevel disc degeneration. Soft tissues: Unremarkable. IMPRESSION: No evidence of acute intrathoracic abnormality. COMMENTS: The presence of pulmonary emphysema on CT is an independent risk factor for lung cancer. In the absence of a history or active diagnosis of lung cancer, it is recommended that this patient with emphysema be evaluated for enrollment in a low dose CT lung cancer screening program.
[2024-05-07 16:49] LABS: Basophils # 0.1 K/mm3 (0-0.2); Basophils % 0.8 % (0.1-2.0); Eosinophils % 0.3 % (0.1-12.0); Hematocrit 37.7 % (37.0-47.0); Hemoglobin 13.1 g/dL (12.2-16.2); Lymphocytes # 2.8 K/mm3 (0.7-4.5); Lymphocytes % 43.1 % (10-50); Mean Corpuscular HGB Conc 34.6 g/dL (31.8-35.4); Mean Corpuscular Hemoglobin 30.7 pg (27.0-31.2); Mean Corpuscular Volume 88.7 fl (81-99); Mean Platelet Volume 7.3 fl (7.4-10.4); Monocytes # 0.5 K/mm3 (0.1-1.0); Monocytes % 7.3 % (1.7-9.3); Neutrophils # 3.2 K/mm3 (1.8-7.8); Neutrophils % 48.5 % (37.0-80.0); Platelet Count 389 K/mm3 (142-424); Red Blood Count 4.25 M/mm3 (4.20-5.40); Red Cell Distribution Width 14.6 % (11.5-17.5); White Blood Count 6.5 K/mm3 (4.8-10.8)
[2024-05-07 16:52] LABS: Chloride 102 mmol/L (98-107)
[2024-05-07 16:53] LABS: Albumin Level 4.8 g/dl (3.5-5.0); Potassium 3.4 mmoL/L (3.5-5.1); Sodium 136 mmol/L (136-145)
[2024-05-07 16:55] LABS: Alanine Aminotransferase 38 U/L (12-78); Anion Gap 16.4 mEq/L (5-15); Aspartate Amino Transferase 37 U/L (14-36); Blood Urea Nitrogen 22 mg/dl (7-17); Carbon Dioxide 21 mmol/L (22.0-30.0); Creatinine Clearance Estimated 31 mL/min (50-200); Estimated Glomerular Filt Rate 30 ml/min (>60); GFR (African American) 37 ML/MIN (>60)
[2024-05-07 16:56] LABS: Albumin/Globulin Ratio 1.5 (1.1-1.8); Alkaline Phosphatase 67 U/L (38-126); Bilirubin,Total 0.8 mg/dl (0.2-1.3); Calcium 8.9 mg/dl (8.4-10.2); Globulin 3.1 g/dL (1.3-3.2); Glucose 150 mg/dl (74-100); Total Protein,Serum 7.9 g/dl (6.3-8.2)
[2024-05-07] MEDS: ONDANSETRON 4MG/2ML VIAL 4 MG IV (17:01)
[2024-05-07] MEDS: MORPHINE 4MG/ML SYRINGE 4 MG IV (17:04)
[2024-05-07 17:05] LABS: NT Pro Brain Natriuretic Pep. 38.6 pg/mL (0-125)
[2024-05-07 17:08] LABS: Troponin I < 0.01 ng/ml (0.00-0.034)
[2024-05-07] MEDS: 0.9 % SODIUM CHLORIDE 1000ML 500 ML 999 ML IV (17:12)
[2024-05-07] MEDS: SODIUM CHLORIDE 0.9% 10ML SYR (RAD ONLY) 10 ML IV (17:25)
[2024-05-07] MEDS: IOPAMIDOL-370 (76%);100ML BOTTLE 80 ML IV (17:25)
[2024-05-07] MEDS: 0.9 % SODIUM CHLORIDE 50 ML VIAL IV (17:25)
--- NOTE | 2024-05-07 18:37 | ED_ITS ---
<Statement entered by Michelle Stock MD - 05/07/24 22:51> I was consulted by the KELL, and we discussed the complexity of the problems being addressed. I approved the treatment and management plan for this patient's care in the emergency department, thus performing a substantive portion of the medical decision making. Michelle Stock MD, MANDY, FACEP Discharge Plan Disposition Patient Disposition: Home, Self-Care Condition: Good Prescriptions Prescriptions: No Action methocarbamol 750 mg tablet 750 mg PO QID PRN (Reason: muscle spasm) clopidogrel 75 mg tablet 75 mg PO DAILY Qty: 90 3RF bupropion HCl 150 mg tablet extended release 24 hr 150 mg PO DAILY Qty: 90 3RF losartan 100 mg tablet 100 mg PO DAILY desvenlafaxine succinate [Pristiq] 25 mg tablet extended release 24 hr 25 mg PO DAILY Qty: 90 3RF calcium carbonate 600 mg calcium (1,500 mg) tablet 1,200 mg PO DAILY Qty: 180 3RF cholecalciferol (vitamin D3) 50 mcg (2,000 unit) capsule 50 mcg PO DAILY Qty: 90 3RF bisoprolol fumarate 10 mg tablet 10 mg PO DAILY Xarelto 2.5 mg tablet 2.5 mg PO BID ondansetron 4 mg tablet,disintegrating 4 mg PO Q8H PRN (Reason: nausea and vomiting) Qty: 30 0RF Antacid Ext Str (calcium carb) 300 mg (750 mg) tablet,chewable 750 mg PO DAILY atorvastatin 80 mg tablet 80 mg PO HS Qty: 90 3RF Prolia 60 mg/mL syringe 60 mg SQ [id number] Qty: 1 1RF hydrochlorothiazide 12.5 mg tablet 12.5 mg PO DAILY Qty: 90 1RF pantoprazole [Protonix] 40 mg tablet,delayed release (DR/EC) 40 mg PO DAILY Qty: 90 1RF nitroglycerin 0.4 MG tablet, sublingual 0.4 mg sublingual [id number] PRN (Reason: Chest Pain) aspirin 81 MG tablet,chewable 81 mg PO DAILY Referrals Follow up/Referrals: Arlette Davies APRN [Primary Care Provider] - See instructions Activity Restrictions/Add. Instructions Additional Instructions/Restrictions: You were seen for chest pain. Your creatinine was elevated at 1.7 and your potassium was 3.4. You should have these rechecked in the next 1-2 days with your PCP. Clinical Impressions Clinical Impression: Chest pain, Renal insufficiency Instructions Patient Instructions: DI for Atypical Chest Pain Print Language Print Language: Wolof Discharge ED Provider: Michelle Stock General Chief Complaint: Chest Pain Stated Complaint: Chest Pain Time Seen by Provider: 05/07/24 16:28 Mode of Arrival: EMS Source of Information: Patient and EMS Limitations: No Limitations Description of Symptoms (Recalled from ER Triage Doc. by RN): chest pain radiating to back and shoulders History of Present Illness HPI narrative: Patient presents with chest pain. She reports that chest pain started 30 minutes prior to arrival. Pain is described as sharp, radiating to the back and rated 8 out of 10. She does have a history of coronary artery disease with CABG in December 2022. She was given aspirin by EMS. Pain does not seem similar to anything she has experienced in the past. She does report some associated shortness of breath and cough. Denies any exacerbating or alleviating factors. She is hypertensive, reports that she did take her medication today. She does have nausea without vomiting. Denies fever. MD complaint: chest pain Onset (ago): minute(s) (30) Duration: constant Activity at onset: during rest Pain location: substernal Severity: severe Severity scale (1-10): 8 Quality: sharp Pain radiation: back Relieving factors: nothing Exacerbating factors: nothing Associated symptoms: nausea, vomiting, dyspnea and cough Risk Factors for CAD: Hypertension and Hypercholesterolemia Treatments prior to or on arrival for Cardiac Chest Pain: aspirin Related Data Prior Cardiac Testing/Procedures: CABG Home Medications ?Medication ?Instructions ?Recorded ?Confirmed aspirin 81 mg chewable tablet 81 mg PO DAILY Heart disease 08/03/17 04/25/24 nitroglycerin 0.4 mg sublingual 0.4 mg sublingual [id number] PRN 08/03/17 04/25/24 tablet Chest Pain methocarbamol 750 mg tablet 750 mg PO QID PRN muscle spasm 09/09/23 04/25/24 losartan 100 mg tablet 100 mg PO DAILY 10/18/23 04/25/24 bisoprolol fumarate 10 mg tablet 10 mg PO DAILY 01/27/24 04/25/24 rivaroxaban 2.5 mg tablet (Xarelto) 2.5 mg PO BID 02/29/24 04/25/24 calcium carbonate (Antacid Ext Str 750 mg PO DAILY 04/25/24 04/25/24 (calcium carb)) Previous Rx's ?Medication ?Instructions ?Recorded bupropion HCl 150 mg 24 hr tablet, 150 mg PO DAILY #90 tabs 09/09/23 extended release clopidogrel 75 mg tablet 75 mg PO DAILY #90 tabs 09/09/23 atorvastatin 80 mg tablet 80 mg PO HS #90 tabs 10/18/23 denosumab 60 mg/mL subcutaneous 60 mg SQ [id number] #1 mL 11/19/23 syringe (Prolia) hydrochlorothiazide 12.5 mg tablet 12.5 mg PO DAILY blood pressure 12/23/23 #90 tabs pantoprazole 40 mg tablet,delayed 40 mg PO DAILY #90 tabs 12/23/23 release (Protonix) ondansetron 4 mg disintegrating 4 mg PO Q8H PRN nausea and 02/29/24 tablet vomiting #30 tabs desvenlafaxine succinate 25 mg 25 mg PO DAILY #90 tabs 04/20/24 tablet,extended release 24 hr (Pristiq) calcium carbonate 1,200 mg (2 x 600 mg calcium 04/21/24 (1,500 mg)) PO DAILY #180 tabs cholecalciferol (vitamin D3) 50 50 mcg PO DAILY #90 caps 04/21/24 mcg (2,000 unit) capsule Allergies Allergy/AdvReac Type Severity Reaction Status Date / Time No Known Allergies Allergy Verified 04/25/24 13:31 [facility] Disclaimer: The information contained in this section may have been updated after the patient was seen, as this information can be updated by other users. Medical History Encounter for screening for osteoporosis Need for RSV vaccination Need for shingles vaccine Screening for lung cancer Hypokalemia Dizziness Chest pain Abnormal abdominal CT scan Renal artery stenosis Abnormal electrocardiogram [ECG] [EKG] Coronary artery disease Dr. Felix Claudication Dyspnea Hyperlipidemia Tobacco dependence syndrome Occlusive mesenteric ischemia Essential hypertension Established with [facility] cardiology Claudication Coronary arteriosclerosis Peripheral vascular disease Dr. 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 Stenosis of artery of left lower extremity History of cholecystectomy Family History Father Coronary artery disease Hyperlipidemia Hypertension Mother Diabetes Hypertension Sister Coronary artery disease Hypertension Hyperlipidemia Cancer cervical Social History Smoking Status: Never smoker years smoked: 20 how long ago did patient quit smokin year second hand exposure: Yes alcohol intake: never counseling provided: none substance use type: denies use current occupational status: retired Travel in the last 8 weeks: None household members: none housing: house number of children: 2 current occupational exposures/hazards: No caffeine: Yes Other Medical History Have you received the Flu Vaccine for this season: No Have you received the Pneumonia Vaccine: No ROS Obtained: Yes Systems reviewed as appropriate & no additional complaints except as documented Physical Exam General General appearance: alert and in no apparent distress Head Head exam: atraumatic and normocephalic Eye Eye exam: Present normal appearance and EOMI Chest Chest inspection: Present symmetric chest wall rise Respiratory Respiratory exam: Present normal lung sounds bilaterally; Absent wheezes or stridor Cardiovascular Cardiovascular exam: Present regular rate and normal rhythm; Absent systolic murmur Abdominal Exam Abdominal exam: Present soft; Absent distention or tenderness Neurological Exam Neurological exam: Present alert and oriented X3 Psychiatric Psychiatric exam: Present normal affect and normal mood Skin Skin exam: Present warm, dry and intact HEART Score HEART Score HEART Score assessment performed?: Yes History (anamnesis): Moderately suspicious ECG: Normal Age: 45-65 years Risk factors: Atherosclerosis history Troponin: </= normal limit HEART Score: 4 Critical Care Critical Care Time Critical Care Time: No Medical Decision Making Medical Records MR Comment: In summary patient is a 64-year-old female who presents the emergency department for evaluation of chest pain. Patient is slightly hypertensive upon arrival, afebrile. Unremarkable physical exam. Differential diagnosis includes IL, aortic dissection, pneumonia. Initial workup will be conducted with chest x-ray, troponin, CTA chest. Initial inventions include IV fluids, morphine. Initial workup reviewed by me renal insufficiency (above baseline, creat 1.7), negative troponin x 2, EKG unremarkable, CTA negative for dissection. Upon repeat evaluation patient is pain free and resting comfortably, BP improved . Given this patient is appropriate for discharge at this time will be discharged with close PCP follow up for repeat BMP in 1-2 days. 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 Return to ED for worsening symptoms. Agreeable. Phillip Inquiry Pt receiving controlled substance: No Vital Signs Vital Signs: 05/07/24 16:24 05/07/24 17:01 05/07/24 17:32 Temperature 98.4 F Temperature Source Oral Pulse Rate 71 60 Pulse Rate [Right] 67 Respiratory Rate 26 H Blood Pressure 98/70 L 121/58 L Blood Pressure [Right Arm] 154/113 H Blood Pressure Mean 79 79 Blood Pressure Mean [Right Arm] 126 02 Sat by Pulse Oximetry 100 100 100 Oxygen Delivery Method Nasal Cannula Nasal Cannula Oxygen Flow Rate (LPM) 2 2 05/07/24 18:00 05/07/24 18:30 05/07/24 18:50 Temperature Temperature Source Pulse Rate 59 L 58 L 55 L Pulse Rate [Right] Respiratory Rate 20 22 Blood Pressure 121/72 130/74 123/74 Blood Pressure [Right Arm] Blood Pressure Mean 83 92 87 Blood Pressure Mean [Right Arm] 02 Sat by Pulse Oximetry 100 100 100 Oxygen Delivery Method Nasal Cannula Nasal Cannula Nasal Cannula Oxygen Flow Rate (LPM) 2 2 2 05/07/24 19:00 05/07/24 19:30 Temperature Temperature Source Pulse Rate 54 L 58 L Pulse Rate [Right] Respiratory Rate 20 Blood Pressure 125/71 129/73 Blood Pressure [Right Arm] Blood Pressure Mean 88 Blood Pressure Mean [Right Arm] 02 Sat by Pulse Oximetry 100 99 Oxygen Delivery Method Nasal Cannula Oxygen Flow Rate (LPM) 2 Lab Data Labs: Lab Results 05/07/24 16:30: WBC 6.5, RBC 4.25, Hgb 13.1, Hct 37.7, MCV 88.7, MCH 30.7, MCHC 34.6, RDW 14.6, Plt Count 389, MPV 7.3 L, Neut % (Auto) 48.5, Lymph % (Auto) 43.1, [place] % (Auto) 7.3, Eos % (Auto) 0.3, Baso % (Auto) 0.8, Neut # (Auto) 3.2, Lymph # (Auto) 2.8, [place] # (Auto) 0.5, Eos # (Auto) 0.0, Baso # (Auto) 0.1, Sodium 136, Potassium 3.4 L, Chloride 102, Carbon Dioxide 21 L, Anion Gap 16.4 H , BUN 22 H, Creatinine 1.70 H, Estimated Creat Clear 31, Estimated GFR 30 L, Est GFR ( Amer) 37 L, Glucose 150 H, Calcium 8.9, Total Bilirubin 0.8, AST 37 H, ALT 38, Alkaline Phosphatase 67, Troponin I < 0.01, NT-Pro-B Natriuret Pep 38.6, Total Protein 7.9, Albumin 4.8, Globulin 3.1, Albumin/Globulin Ratio 1.5 05/07/24 19:27: Troponin I < 0.01 05/07/24 16:30 05/07/24 16:30 Response Orders (Tests/Meds): ED MEDICATIONS Generic Name Dose Route Start Last Admin Trade Name Freq PRN Reason Stop Dose Admin Sodium Chloride 10 ml 05/07/24 16:38 Sodium Chloride 0.9% 10ml Flush Syringe IV 06/06/24 16:37 NEEDED PRN Maintain IV Site Sodium Chloride 10 ml 05/07/24 17:24 05/07/24 17:25 Sodium Chloride 0.9% 10ml Syr (Rad Only) IV 06/06/24 17:23 10 ml NEEDED PRN Administration Maintain IV Site Discontinued Medications Generic Name Dose Route Start Last Admin Trade Name Freq PRN Reason Stop Dose Admin Sodium Chloride 500 mls @ 999 mls/hr 05/07/24 17:10 05/07/24 17:12 Sod Chlor 0.9% 1000ml Bag IV 05/07/24 17:40 999 mls/hr .Q31M ONE Administration Sodium Chloride 1,000 mls @ 500 mls/hr 05/07/24 19:15 Sod Chlor 0.9% 1000ml Bag IV 06/06/24 19:14 .Q2H DARIO Iopamidol 80 ml 05/07/24 17:24 05/07/24 17:25 Iopamidol-370 (76%);100ml Bottle IV 05/07/24 17:25 80 ml ONCE ONE Administration Morphine Sulfate 4 mg 05/07/24 16:40 05/07/24 17:04 Morphine 2mg/Ml Syringe IV 05/07/24 16:41 Not Given ONCE ONE Morphine Sulfate 4 mg 05/07/24 17:03 05/07/24 17:04 Morphine 4mg/Ml Syringe IV 05/07/24 17:04 4 mg ONCE ONE Administration Ondansetron HCl 4 mg 05/07/24 16:38 05/07/24 17:01 Ondansetron 4mg/2ml Vial IV 05/07/24 16:39 4 mg ONCE ONE Administration Sodium Chloride 50 ml 05/07/24 17:24 05/07/24 17:25 0.9 % Sodium Chloride 50 Ml Vial IV 05/07/24 17:25 50 ml ONCE ONE Administration ORDERS Category Date Time Status CTA Chest [CT angio chest - dissection] Stat Cat Scan 05/07/24 16:38 Completed XR chest portable Stat Exams 05/07/24 16:38 Completed Complete Blood Count Auto Diff Stat Lab 05/07/24 16:30 Completed Comprehensive Metabolic Panel Stat Lab 05/07/24 16:30 Completed HIV (1&2) Antibody Rapid Stat Lab 05/07/24 16:29 Ordered Hep C Ab with Reflex to RNA Stat Lab 05/07/24 16:29 Ordered NT Pro Brain Natriuretic Pep. Stat Lab 05/07/24 16:30 Completed Troponin I Q3H Lab 05/07/24 16:30 Completed Troponin I Q3H Lab 05/07/24 19:27 Completed Troponin I Q3H Lab 05/07/24 22:[address] Scan: Abdomen and Pelvis Time Received: 19:[address] Reviewed: Yes I have viewed the radiologist's interpretation Findings Narrative: IMPRESSION: No evidence of acute intrathoracic abnormality. US Data ED US Reviewed: Yes I have viewed radiologist's interpretation
[2024-05-07 20:01] LABS: Troponin I < 0.01 ng/ml (0.00-0.034)
== END 2024-05-07 20:26 | disposition home or self-care (01) ==
PROVIDERS: Physician Assistant; Emergency Provider Student in an Organized Health Care Education/Training Program; PCP Nurse Practitioner Family
DX: N28.9 Disorder of kidney and ureter, unspecified (principal); R07.9 Chest pain, unspecified; R06.02 Shortness of breath; R05.9 Cough, unspecified; I10 Essential (primary) hypertension; R11.0 Nausea
CPT/HCPCS: 71045; 71275; 80053; 83880; 84484; 85025; 93005; 96360; 96361; 96374; 96375; 99285; J2270; J2405; J7030; Q9967

== ENCOUNTER 2024-05-15 13:43 | Outpatient (CLI) | payer BC, SELFPAY ==
[2024-05-15 13:03] LABS: Chloride 105 mmol/L (98-107); Sodium 138 mmol/L (136-145)
[2024-05-15 13:06] LABS: Anion Gap 11.7 mEq/L (5-15); Blood Urea Nitrogen 12 mg/dl (7-17); Carbon Dioxide 26 mmol/L (22.0-30.0); Estimated Glomerular Filt Rate 50 ml/min (>60); GFR (African American) 61 ML/MIN (>60); Glucose 100 mg/dl (74-100); Potassium 4.7 mmoL/L (3.5-5.1)
== END 2024-05-15 23:59 | disposition home or self-care (01) ==
LOC: LAB.DROPOF 13:43
PROVIDERS: PCP Nurse Practitioner Family; Visit Provider Nurse Practitioner Family
DX: N28.9 Disorder of kidney and ureter, unspecified (principal)
CPT/HCPCS: 80048

== ENCOUNTER 2024-06-06 10:46 | Outpatient (CLI) | payer BC, SELFPAY ==
--- NOTE | 2024-06-06 10:49 | CA_ITS ---
APPROVED REPORT EXAM: Comprehensive 2D, Doppler, and color-flow Echocardiogram Stone Gluer: Courtney Fischer, RCS, RVS Ht: 5 ft 4 in Wt: 136lbs BSA: 1.66 BP: 130/61 mmHg Indications: CP, CAD-cabg-2 years ago, HTN, Ex-smoker, Abn EKG 2D Dimensions IVSd 0.75 cm LVEF (Visual) 54.30 % PWd 0.83 cm LA Volume 19.60 mL LVDd 3.00 cm LA Volume Index 11.50 mL/m2 (M/F) 16-34 LVDs 2.19 cm EF AP4 50.10 % Left Atrium 2.77 cm GL Strain -26.3 % M-Mode Dimensions RVDd 1.72 cm (0.9-2.6) LA Diam 2.64 cm (1.9-4.0) LVDd 3.94 cm (3.5-5.7) LVDs 2.47 cm (3.5-5.7) IVSd 0.81 cm (0.6-1.1) PWd 0.97 cm (0.6-1.1) EF (Teich) 67.90% EPSs 0.47 cm FS 37.30% EDV (Teich) 67.50 mL TAPSE 1.38 (<1.7) ESV (Teich) 21.70 mL LV Diastology E Decel Time 242 (160-240 msec) E/A Ratio 1.25 MED A' 9.30 cm/s LAT A' 8.10 cm/s Aortic Valve SANDRO Index 1.31 cm2/m2 AoV Peak Adam. 115.0 (50-130 cm/s) AO Peak GR. 5.30 mmHg AO Mean GR. 2.60 (<5 mmHg) AO VTI 23.9 (18-25 cm) SANDRO (VTI) 2.22 (2.5-4.5 cm2) Mitral Valve MV A Velocity 50.0 (40-130 cm/s) E/A Ratio 1.25 Left Ventricle The left ventricle is normal size. The left ventricular systolic function is normal. The left ventricular ejection fraction is within the normal range. There is increased LV wall thickness. There is normal LV segmental wall motion. The left ventricular diastolic function is normal. LVEF is 55%. Right Ventricle Right ventricle is mildly dilated. The right ventricular systolic function is normal. Atria The left atrium size is normal. The right atrium size is normal. There is no Doppler evidence of interatrial shunt. Aortic Valve The aortic valve is mildly thickened. There is no aortic valvular stenosis. Trace aortic regurgitation. Mitral Valve The mitral valve is mildly thickened. No evidence of mitral valve stenosis. Trace mitral regurgitation. Tricuspid Valve The tricuspid valve leaflets are thin and pliable. Trace tricuspid regurgitation. There is insufficient TR jet to estimate RVSP. Pulmonic Valve The pulmonary valve is normal in structure. Trace pulmonic regurgitation. Great Vessels The aortic root is normal in size. The ascending aorta is not well-visualized. IVC is normal in size and collapses >50% with inspiration. Pericardium There is no pericardial effusion. Other Information Study Quality: Fair Conclusion Normal biventricular systolic function. Mild RV dilation. No significant valvular stenosis or regurgitation. Electronically signed by : Cassia Tan MD 06/11/2024 03:33:11
== END 2024-06-06 23:59 | disposition home or self-care (01) ==
LOC: RT 10:47
PROVIDERS: PCP Nurse Practitioner Family; Visit Provider Nurse Practitioner
DX: I51.7 Cardiomegaly (principal); I20.9 Angina pectoris, unspecified
CPT/HCPCS: 93306

== ENCOUNTER 2024-06-19 12:58 | Outpatient (CLI) | payer BC, SELFPAY ==
[2024-06-19 13:05] VITALS: BP 143/65; PULSE 61; RESP 18; TEMP 35.8; O2SAT 99
[2024-06-19] MEDS: DENOSUMAB 60 MG/ML SYRINGE SUBCUT (13:05)
== END 2024-06-19 13:10 | disposition home or self-care (01) ==
LOC: INF 12:59
PROVIDERS: PCP Nurse Practitioner Family; Visit Provider Nurse Practitioner Family
DX: M81.0 Age-related osteoporosis without current pathological fracture (principal)
CPT/HCPCS: 96372; J0897

== ENCOUNTER 2024-09-13 11:18 | Outpatient (CLI) | payer OTHER, SELFPAY ==
--- NOTE | 2024-09-13 11:21 | XR_ITS ---
FINAL REPORT CLINICAL HISTORY: cough COMPARISON: 05/07/2024 FINDINGS: 2 views of the chest were obtained . Patient is status post median sternotomy. The heart is normal in size. The mediastinum is within normal limits. The lungs are clear. There is no pneumothorax. Osseous structures are unremarkable. IMPRESSION: No acute cardiopulmonary process. Reviewed, Interpreted and Dictated by Lucrecia Lewis MD Transcribed by Alexia Song Authenticated and [facility]
== END 2024-09-13 23:59 | disposition home or self-care (01) ==
LOC: RAD 11:19
PROVIDERS: PCP Nurse Practitioner Family; Visit Provider Nurse Practitioner Family
DX: I25.10 Atherosclerotic heart disease of native coronary artery without angina pectoris (principal); R05.9 Cough, unspecified
CPT/HCPCS: 71046

== ENCOUNTER 2024-10-17 08:37 | Outpatient (CLI) | payer OTHER, SELFPAY ==
[2024-10-17 08:44] LABS: Microscopic, Urine URINE MICROSCOPIC (MICROSCOPIC)
[2024-10-17 09:08] LABS: Basophils % 0.6 % (0.1-2.0); Eosinophils # 0.1 K/mm3 (0.0-0.4); Eosinophils % 2.5 % (0.1-12.0); Hematocrit 36.2 % (37.0-47.0); Hemoglobin 12.4 g/dL (12.2-16.2); Lymphocytes # 1.5 K/mm3 (0.7-4.5); Lymphocytes % 30.9 % (10-50); Mean Corpuscular HGB Conc 34.3 g/dL (31.8-35.4); Mean Corpuscular Hemoglobin 31.2 pg (27.0-31.2); Mean Corpuscular Volume 91.2 fl (81-99); Mean Platelet Volume 9.9 fl (7.4-10.4); Monocytes # 0.5 K/mm3 (0.1-1.0); Monocytes % 9.5 % (1.7-9.3); Neutrophils # 2.6 K/mm3 (1.8-7.8); Neutrophils % 56.1 % (37.0-80.0); Platelet Count 360 K/mm3 (142-424); Red Blood Count 3.97 M/mm3 (4.20-5.40); Red Cell Distribution Width 12.8 % (11.5-17.5); White Blood Count 4.7 K/mm3 (4.8-10.8)
[2024-10-17 09:31] LABS: Albumin Level 4.6 g/dl (3.5-5.0)
[2024-10-17 09:32] LABS: Albumin Level 4.7 g/dl (3.5-5.0); Chloride 106 mmol/L (98-107); Sodium 137 mmol/L (136-145)
[2024-10-17 09:34] LABS: Alanine Aminotransferase 23 U/L (12-78); Alkaline Phosphatase 51 U/L (38-126); Aspartate Amino Transferase 26 U/L (14-36); Bilirubin,Indirect 0.2 mg/dL (0.0-0.9); Bilirubin,Total 0.2 mg/dl (0.2-1.3); Bilirubin,Unconjugated 0.3 mg/dL (0.0-1.1); Cholesterol 221 mg/dl (140-200); HDL Cholesterol 44 mg/dl (40-60); Total Protein,Serum 6.7 g/dl (6.3-8.2); Triglycerides 243 mg/dl (30-150); VLDL Cholesterol 49 mg/dL (0-40)
[2024-10-17 09:35] LABS: Alanine Aminotransferase 23 U/L (12-78); Albumin/Globulin Ratio 2.2 (1.1-1.8); Aspartate Amino Transferase 26 U/L (14-36); Blood Urea Nitrogen 17 mg/dl (7-17); Calcium 9.5 mg/dl (8.4-10.2); Carbon Dioxide 25 mmol/L (22.0-30.0); Estimated Glomerular Filt Rate 50 ml/min (>60); GFR (African American) 61 ML/MIN (>60); Globulin 2.1 g/dL (1.3-3.2); Glucose 117 mg/dl (74-100); Total Protein,Serum 6.8 g/dl (6.3-8.2)
[2024-10-17 09:45] LABS: Direct LDL Cholesterol 109.26 mg/dL (100-129)
[2024-10-17 10:04] LABS: Thyroid Stimulating Hormone 3.29 uIU/mL (0.465-4.68)
[2024-10-17 10:10] LABS: 25-OH Vitamin D, Total 60.9 ng/mL (30-100)
[2024-10-17 10:17] LABS: Free T4 (Free Thyroxine) 1.33 ng/dl (0.78-2.19)
[2024-10-17 10:30] LABS: Hemoglobin A1C 5.4 % (4.0-6.0)
[2024-10-17 10:46] LABS: Appearance,Urine Clear (Clear); Color,Urine Yellow (Yellow)
[2024-10-17 10:47] LABS: Bilirubin,Urine Negative (Negative); Blood, Urine Negative (Negative); Glucose,Urine (UA) Negative (Negative); Ketones,Urine Negative (Negative); Leukocyte Esterase,Urine Negative (Negative); Nitrate,Urine Negative (Negative); PH,Urine 5.5 (5.0-8.5); Protein,Urine Negative (Negative); Urobilinogen,Urine 0.2 EU/dl (0.2)
[2024-10-17 10:48] LABS: Bacteria,Urine Trace /lpf
[2024-10-17 11:25] LABS: Alkaline Phosphatase 47 U/L (38-126); Bilirubin,Total 0.3 mg/dl (0.2-1.3)
[2024-10-17 12:22] LABS: Vitamin B12 555 pg/mL (239-931)
== END 2024-10-17 23:59 | disposition home or self-care (01) ==
LOC: LAB 08:38
PROVIDERS: Physician Assistant; PCP Nurse Practitioner Family; Visit Provider Nurse Practitioner Family
DX: Z13.1 Encounter for screening for diabetes mellitus (principal); I11.9 Hypertensive heart disease without heart failure; I25.10 Atherosclerotic heart disease of native coronary artery without angina pectoris; E78.5 Hyperlipidemia, unspecified; R53.83 Other fatigue; M81.0 Age-related osteoporosis without current pathological fracture; E55.9 Vitamin D deficiency, unspecified; G62.9 Polyneuropathy, unspecified; Z68.24 Body mass index [BMI] 24.0-24.9, adult
CPT/HCPCS: 36415; 80053; 80061; 80076; 81001; 82306; 82607; 83036; 84156; 84439; 84443; 85025; 87086

== ENCOUNTER 2024-10-18 07:14 | Outpatient (CLI) | payer OTHER, SELFPAY ==
--- NOTE | 2024-10-18 | CA_ITS ---
APPROVED REPORT Exam: Pharmacologic Technologist: Kiki Santos Ht: 5 ft 4 in Wt: 140 lbs BSA: 1.68 m2 Stress Test Details Test: Lexiscan Reason for pharmacologic stress test: physical limitation. HR Resting HR: 54 bpm Max Heart Rate (APMHR): 156.924509 bpm Max HR Achieved: 91 bpm Target HR (85% APMHR): 132.915671 bpm % of APMHR: 58.33 Recovery HR: 72 bpm BP Resting BP: 160.0/74.0 mmHg Max BP: 160.0/74.0 mmHg Recovery BP: 146.0/75.0 mmHg ECG Resting ECG: SR no isch Stress ECG Conclusion Symptoms: Mild SOA with Opal. Arrhythmias/Ectopy: None. ST-T Changes: None. Lexiscan. Electronically signed by : Cassia Tan MD 10/19/2024 12:28:43
--- NOTE | 2024-10-18 07:15 | NM_ITS ---
APPROVED REPORT Exam: Nuclear Stress Test Indication: cad, cabg, htn, hyperlipidemia, fm hx, c.p., sob Patient Location: Outpatient Stress Tech: Kiki Perez OR Tech:ELFEGO Boykin RT (R)(N)(M) Ht: 5 ft 4 in Wt: 138 lbs Bra Size: ddd HR: 54 bpm BP: 160/74 mmHg BSA: 1.67 m2 TID: 1.23 BMI: 23.6 History: cad, cabg, htn, hyperlipidemia, fm hx, c.p., sob Procedure: Patient received 0.4 mg of intravenous Lexiscan, resting heart rate 54 bpm, resting blood pressure 160/74 mmHg, with Lexiscan maximum heart rate achieved was 91 bpm which is % of the maximum predicted heart rate and blood pressure was 146/79 mmHg. With Lexiscan, patient denied any complaint of chest pain. Cardiac Stress and Resting SPECT Images: Cardiac Stress and Resting SPECT images were obtained using technetium 99m Myoview 31.0 mCi stress and 10.45 mCi at rest. Resting and stress imaging in supine and prone positions demonstrate no evidence of fixed or reversible perfusion defects. There is increase in transient ischemic dilatation ratio (TID 1.23), suggestive of possible multivessel disease or balanced ischemia. Gated imaging demonstrates normal global and regional LV systolic function. LVEF is calculated at 66%. Conclusion: No evidence of fixed or reversible perfusion defects. There is increase in transient ischemic dilatation ratio (TID 1.23), suggestive of possible multivessel disease or balanced ischemia. Gated imaging demonstrates normal global and regional LV systolic function. LVEF is calculated at 66%. Electronically signed by : Cassia Tan MD 10/19/2024 01:03:26
[2024-10-18] MEDS: SODIUM CHLORIDE 0.9% 10ML SYR (RAD ONLY) 10 ML IV ×2 (07:30→09:15)
[2024-10-18] MEDS: REGADENOSON 0.4MG/5ML SYRINGE 0.4 MG IV (09:15)
[2024-10-18] MEDS: ISOTOPE MYOVIEW (PER STUDY) 1 DOSE IV (10:35)
== END 2024-10-18 23:59 | disposition home or self-care (01) ==
LOC: RAD 07:15
PROVIDERS: PCP Nurse Practitioner Family; Visit Provider Nurse Practitioner Family
DX: I25.10 Atherosclerotic heart disease of native coronary artery without angina pectoris (principal); R05.9 Cough, unspecified
CPT/HCPCS: 78452; 93017; 93018; A9502; J2785

== ENCOUNTER 2024-10-26 10:44 | Day surgery (SDC) | payer OTHER, SELFPAY ==
[2024-10-26] VITALS (13 sets, daily range): BP systolic 116–181; BP diastolic 61–98; PULSE 48–65; RESP 16–18; O2SAT 94–99; BMI 24.9
--- NOTE | 2024-10-26 07:16 | IR_ITS ---
APPROVED REPORT Patient Location: Outpatient PROCEDURES Left heart catheterization Left ventriculogram Selective coronary angiogram Selective engagement left internal mammary artery to the LAD Selective engagement of the saphenous vein graft to the right coronary INDICATION Coronary artery disease, History of coronary bypass surgery, Accelerated angina pectoris, Abnormal stress test, Informed consent was obtained prior to the procedure. COMPLICATIONS NONE Estimated Blood Loss: LESS THAN 10 ML TECHNIQUE One percent lidocaine used to anesthetize the right groin. The right femoral artery was accessed via the Seldinger technique and a 5 Greenlandic sheath was placed in the right femoral artery. A JL 4, JR4 catheter were used to perform left heart catheterization, left ventriculogram selective coronary angiography as well as selective engagement of the solitary vein graft to the right coronary and the left internal mammary artery. At the end of the procedure the patient was transferred to the postop holding area in stable condition for sheath removal. ANGIOGRAPHIC RESULTS The left main artery Normal The left anterior descending artery Has proximal 40 followed by a 70% stenosis with mid vessel 50% stenosis. There is distal competitive flow from the left internal mammary artery. A first diagonal artery has a proximal 80% stenosis The circumflex artery There is a large system and has proximal 50% stenoses with a 70% stenosis and a large highly tortuous first obtuse marginal artery followed by a distal 70% stenosis also in the same vessel and a tortuous area. The second obtuse marginal artery has a proximal 50% stenosis and severe small vessel disease in the distal second obtuse marginal artery The right coronary artery Is dominant and occluded at mid segment The MENDES ventriculogram reveals Hyperdynamic at 75% The left ventricular end-diastolic pressure 10 mmHg CRAWLEY graft to LAD and diagonal artery are widely patent Saphenous vein graft posterior sending artery of the right coronary is widely patent IMPRESSION Coronary disease as described above Severe disease in the large first obtuse marginal artery which is highly tortuous with disease along the tortuous bends Slightly hyperdynamic at 75% Normal LVEDP Diffuse granulomas identified under fluoroscopy during angiography throughout the pulmonary tree PLAN 1. Medical management for coronary artery disease. The circumflex artery/obtuse marginal artery is highly tortuous and stenting this vessel would be fraught with hazards and complications. Medical management is most warranted 2. Consider CT of the chest given the granulomatous pattern identified under fluoroscopy. Recommend pulmonology referral 3. Risk factor modification 4. Treatment of hypertensive heart disease and hyperdynamic left ventricle which may also be contributing to patient's symptoms Electronically signed by : Kolby Felix MD 10/26/2024 16:08:17
[2024-10-26 11:09] LABS: Basophils % 0.6 % (0.1-2.0); Eosinophils # 0.1 K/mm3 (0.0-0.4); Eosinophils % 2.6 % (0.1-12.0); Hematocrit 32.7 % (37.0-47.0); Hemoglobin 11.4 g/dL (12.2-16.2); Lymphocytes # 1.6 K/mm3 (0.7-4.5); Lymphocytes % 33.3 % (10-50); Mean Corpuscular HGB Conc 34.9 g/dL (31.8-35.4); Mean Corpuscular Hemoglobin 31.3 pg (27.0-31.2); Mean Corpuscular Volume 89.8 fl (81-99); Mean Platelet Volume 9.6 fl (7.4-10.4); Monocytes # 0.4 K/mm3 (0.1-1.0); Monocytes % 8.5 % (1.7-9.3); Neutrophils # 2.7 K/mm3 (1.8-7.8); Neutrophils % 54.8 % (37.0-80.0); Platelet Count 313 K/mm3 (142-424); Red Blood Count 3.64 M/mm3 (4.20-5.40); Red Cell Distribution Width 12.4 % (11.5-17.5); White Blood Count 4.9 K/mm3 (4.8-10.8)
[2024-10-26 11:14] LABS: Chloride 108 mmol/L (98-107); Sodium 141 mmol/L (136-145)
[2024-10-26 11:15] LABS: Potassium 3.9 mmoL/L (3.5-5.1)
[2024-10-26 11:17] LABS: Blood Urea Nitrogen 14 mg/dl (7-17); Creatinine Clearance Estimated 59 mL/min (50-200); Estimated Glomerular Filt Rate 56 ml/min (>60); GFR (African American) 68 ML/MIN (>60)
[2024-10-26 11:18] LABS: Anion Gap 11.9 mEq/L (5-15); Calcium 9.8 mg/dl (8.4-10.2); Carbon Dioxide 25 mmol/L (22.0-30.0); Glucose 107 mg/dl (74-100)
--- NOTE | 2024-10-26 14:29 | SUR.PHASEII ---
pt and pt's family in the lobby updated on wait time.
[2024-10-26] MEDS: diphenhydrAMINE 50MG/ML VIAL 50 MG IV (15:28)
[2024-10-26] MEDS: LIDOCAINE 1% 10ML MDV 20 ML IJ (15:28)
[2024-10-26] MEDS: MIDAZOLAM HCL 1MG/ML 5ML VIAL 1 MG IV (15:29)
[2024-10-26] MEDS: FENTANYL 100MCG/2ML VIAL 50 MCG IV (15:30)
[2024-10-26] MEDS: 0.9 % SODIUM CHLORIDE 500 ML 25 ML IV (15:31)
[2024-10-26] MEDS: HEPARIN 1,000 UNITS/500ML NS (CATH LAB) 3000 UNIT IV (15:34)
[2024-10-26] MEDS: IOPAMIDOL-370 (76%);100ML BOTTLE 95 ML IV (16:35)
== END 2024-10-26 18:43 | disposition home or self-care (01) ==
PROVIDERS: PCP Nurse Practitioner Family; Visit Provider Internal Medicine
DX: I25.118 Atherosclerotic heart disease of native coronary artery with other forms of angina pectoris (principal); R93.1 Abnormal findings on diagnostic imaging of heart and coronary circulation; R53.83 Other fatigue; Z95.1 Presence of aortocoronary bypass graft; I70.1 Atherosclerosis of renal artery; Z82.49 Family history of ischemic heart disease and other diseases of the circulatory system; I10 Essential (primary) hypertension; E78.5 Hyperlipidemia, unspecified; Z95.820 Peripheral vascular angioplasty status with implants and grafts; Z79.899 Other long term (current) drug therapy
CPT/HCPCS: 36415; 80048; 85025; 93459; 99152; C1725; C1769; C1894; J1200; J1644; J3010; Q9967

== ENCOUNTER 2024-11-06 14:38 | Outpatient (CLI) | payer OTHER, SELFPAY ==
--- NOTE | 2024-11-06 15:00 | MM_ITS ---
PROCEDURE INFORMATION: Exam: MG Bilateral Screening 3D Mammography Exam date and time: 11/06/2024 2:52 PM Age: 64 years old Clinical indication: Screening examination. TECHNIQUE: Imaging protocol: Bilateral Screening tomosynthesis and 2D mammography including computer-aided detection (CAD) when performed. COMPARISON: 1. MG MM DIG SCREENING MAMM BI W/CAD 11/04/2023 7:52 AM 2. MG MM DIG SCREENING MAMM BI W/CAD 06/09/2022 8:02 AM FINDINGS: MAMMOGRAPHY: Breast composition: There are scattered areas of fibroglandular density. Mass: None. Architectural distortion: None. Calcifications: No suspicious calcifications. Asymmetric density: None. Skin thickening: None. Axillary adenopathy: None. IMPRESSION: No mammographic evidence of malignancy. Annual screening is recommended unless otherwise clinically indicated. ASSESSMENT: BI-RADS Category 1: Negative.
== END 2024-11-06 23:59 | disposition home or self-care (01) ==
LOC: RAD 14:39
PROVIDERS: PCP Nurse Practitioner Family; Visit Provider Nurse Practitioner Family
DX: Z12.31 Encounter for screening mammogram for malignant neoplasm of breast (principal)
CPT/HCPCS: 77063; 77067

== ENCOUNTER 2024-11-23 13:25 | Outpatient (CLI) | payer OTHER, SELFPAY | END 2024-11-23 23:59 | disposition home or self-care (01) | LOC: LAB.DROPOF 11-24 10:55 | PROVIDERS: PCP Nurse Practitioner; Visit Provider Nurse Practitioner | DX: R69 Illness, unspecified (principal) ==

== ENCOUNTER 2024-11-24 08:54 | Outpatient (CLI) | payer OTHER, SELFPAY ==
--- NOTE | 2024-11-24 09:00 | CT_ITS ---
FINAL REPORT TECHNIQUE: Routine axial images were obtained from the lung apices to below the diaphragm following IV contrast administration. Individualized dose reduction techniques using automated exposure control or adjustment of the mA and/or kV according to the patient size were employed. CLINICAL HISTORY: nodules COMPARISON: 05/07/2024 FINDINGS: Patient is status post median sternotomy. There are advanced changes of centrilobular emphysema. There is mild interstitial opacity in the periphery of both lungs, probably due to fibrosis. There is a tiny nodule in the periphery of the right upper lobe measuring 2 mm. Finding is stable and best seen on image 23 of series 2. There is also a nodule in the left costophrenic angle measuring 4 mm well-seen on image 59 of series 2. This was partially obscured by atelectasis on the prior exam but favored to be stable. No new nodules are identified. No pleural or pericardial effusion is seen. No adenopathy or mass lesion is present. Limited images of the upper abdomen reveal cholecystectomy. IMPRESSION: Advanced changes of centrilobular emphysema with associated mild fibrosis. Stable nodules as detailed above. Resume normal low-dose chest CT. Reviewed, Interpreted and Dictated by Evin Atkins MD Transcribed by Maureen Huber Authenticated and [facility]
[2024-11-24] MEDS: IOPAMIDOL-370 (76%);100ML BOTTLE 75 ML IV (09:13)
[2024-11-24] MEDS: SODIUM CHLORIDE 0.9% 10ML SYR (RAD ONLY) 10 ML IV (09:13)
== END 2024-11-24 23:59 | disposition home or self-care (01) ==
LOC: RAD 08:54
PROVIDERS: PCP Nurse Practitioner Family; Visit Provider Nurse Practitioner Family
DX: R91.8 Other nonspecific abnormal finding of lung field (principal); B35.1 Tinea unguium; R93.1 Abnormal findings on diagnostic imaging of heart and coronary circulation
CPT/HCPCS: 71260; 87102; 87206; 87220; Q9967

== ENCOUNTER 2024-12-18 12:53 | Outpatient (CLI) | payer OTHER, SELFPAY ==
[2024-12-18 13:03] VITALS: BP 137/79; PULSE 78; RESP 18; TEMP 36.8; O2SAT 99
[2024-12-18] MEDS: DENOSUMAB 60 MG/ML SYRINGE SUBCUT (13:09)
== END 2024-12-18 13:15 | disposition home or self-care (01) ==
LOC: INF 12:54
PROVIDERS: PCP Nurse Practitioner Family; Visit Provider Nurse Practitioner Family
DX: M81.0 Age-related osteoporosis without current pathological fracture (principal)
CPT/HCPCS: 96372; J0897

== ENCOUNTER 2025-01-18 10:06 | Outpatient (CLI) | payer OTHER, SELFPAY ==
[2025-01-18 14:10] LABS: Chol/HDL Ratio 2.4 (1-3.5); Cholesterol 121 mg/dl (140-200); HDL Cholesterol 50 mg/dl (40-60); Triglycerides 118 mg/dl (30-150); VLDL Cholesterol 24 mg/dL (0-40)
[2025-01-18 14:27] LABS: Direct LDL Cholesterol 39.53 mg/dL (100-129)
--- OUTSIDE RECORDS SUMMARY | 2025-01-22 12:28 | XMS_ITS | Encounter Summary ---
Author Organization Healthcare Address [address] [id number] Care Team Providers Care Greens Tier Name Role Phone Kolby Felix MD Unavailable [phone] Pcp, No Primary Care Provider Unavailabl e Encounter Details Date Type Department Care Team (Late st Contact Info) Description 01/01/2025 Telephone [facility] [address] [facility] 5th Floor Wing [address], [address] [place] [address] Emilee Ruth MD [address] [facility] [address] [place] [address] Social History Tobacco Use Types Packs/Day Years Used Date Smoking Tobacco: Former Cigarettes 1 15 0 11/2007 - 10/2022 Passive Smoke Exposure: Past Smokeless Tobacco: Former Quit: 11/14/2022 Alcohol Use Standard Drinks/Week Comments No 0 (1 standard drink = 0.6 oz pur e alcohol) PHQ-2 Answer Date Recorded Patient Health Questionnaire-2 Score 0 11/22/2023 PHQ-2A Answer Date Recorded Patient Health Questionnaire-2 Score 0 02/11/2023 Comments No Sex and Gender Information Value Date Recorded Sex Assigned at Not on file Legal Sex Female 6:48 PM EDT Gender Identity Not on file Sexual Orientation Not on file 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 Ruth on 01/04/[address] Ruth being out of clinic. Pt requested to cancel all visits and not reschedule atthis time. She will call back once she is ready to reschedule. documented in this encounter Plan of Treatment Not on file documented as of this encounter Visit Diagnoses Not on filedocumented in this encounter Additional Health Concerns Assessment Noted Time A fall risk assessment has been complete d for the patient 11/22/2023 7:53 AM EDT A Body Mass Index follow-up plan has been documented for the patient 11/22/2023 8:56 AM EDT documented as of this encounter Care Teams Greens Tier Relationship Specialty Start Date End Date Pcp, No [address] [place] [address] PCP - General Family Medicine 12/24/22 Kolby Felix MD [address] [place] [address] Referring Physician Cardiology 12/23/22 documented as of this encounter
--- OUTSIDE RECORDS SUMMARY | 2025-01-22 12:28 | XMS_ITS | Encounter Summary ---
Author Organization Healthcare Address [address] [place] [address] Care Team Providers Care Manager Travel Name Role Phone Kolby Felix MD Primary Care Provider Kolby Felix MD Unavailable [phone] Pcp, No Primary Care Provider Unavailabl e Encounter Details Date Type Department Care Team (Late st Contact Info) Description 10/19/2022 Orders Only External Location [address] [place] [address] Demetria Vora APRN [address] [phone] Social History Tobacco Use Types Packs/Day Years Used Date Smoking Tobacco: Every Day Alcohol Use Standard Drinks/Week Comments No 0 (1 standard drink = 0.6 oz pur e alcohol) Comments Unknown Sex and Gender Information Value Date Recorded Sex Assigned at Not on file Legal Sex Female 6:48 PM EDT Gender Identity Not on file Sexual Orientation Not on file documented as of this encounter Plan of Treatment Not on file documented as of this encounter Procedures Procedure Name Priority Date/Time Associated Diagnosis Comments POC US ECHOCARDIOGRAPHY COMPLETE W DOPPLER AND COLOR 10/19/2022 1:19 PM EDT documented in this encounter Results * POC US Echocardiography Complete W Doppler and Color (10/19/2022 1:19 PM EDT) Anatomical Region Laterality Modality Ultrasound 10/19/2022 1:19 PM EDT us Demetria Vora APRN IMG POINT OF CARE ULTRASOUND Final Result documented in this encounter Visit Diagnoses Not on filedocumented in this encounter Care Teams Manager Travel Relationship Specialty Start Date End Date Kolby Felix MD [address] [place] [phone] PCP - General 12/13/20 12/22/22 Pcp, Lizzy [address] [place] [phone] PCP - General Family Medicine 12/24/22 Kolby Felix MD [address] [place] [phone] Referring Physician Cardiology 12/23/22 documented as of this encounter
--- OUTSIDE RECORDS SUMMARY | 2025-01-22 12:28 | XMS_ITS | Encounter Summary ---
Author Organization [facility] Address [address] [place] [address] Care Team Providers Care Configuration Manager Name Role Phone Kolby Felix MD Unavailable [phone] Pcp, No Primary Care Provider Unavailabl e Reason for Referral * Imaging (Routine) - Authorized Specialty Diagnoses / Procedures Referred By Contac t Referred To Contact Cardiology Diagnoses PAD (peripheral artery disease) (CMS/HCC) Claudication (CMS/HCC) Atherosclerosis of artery of both lower extremities Procedures VAS US Arterial Duplex Lower Extremity Bilateral Stent Lázaro Morrow MD [address] [address] Phone: tel: fax: Referral ID Status Reason Start Date Expiration Date Visits Requested Visits Authorized [id number] Authorized Perform Procedure 12/15/2024 06/16/2026 1 1 * Imaging (Routine) - Authorized Specialty Diagnoses / Procedures Referred By Contac t Referred To Contact Cardiology Diagnoses PAD (peripheral artery disease) (CMS/HCC) Claudication (CMS/HCC) Atherosclerosis of artery of both lower extremities Procedures VAS US Aorta IVC Iliac Vessels Duplex Lázaro Morrow MD [address] [address] Phone: tel: fax: Referral ID Status Reason Start Date Expiration Date Visits Requested Visits Authorized [id number] Authorized Perform Procedure 12/15/2024 06/16/2026 1 1 * Imaging (Routine) - Authorized Specialty Diagnoses / Procedures Referred By Contac t Referred To Contact Cardiology Diagnoses PAD (peripheral artery disease) (CMS/HCC) Claudication (CMS/HCC) Atherosclerosis of artery of both lower extremities Procedures VAS Ankle Brachial Index - Segmental Lázaro Morrow MD [address] [facility] [address] [place] [address] Phone: tel: fax: Referral ID Status Reason Start Date Expiration Date Visits Requested Visits Authorized [id number] Authorized Perform Procedure 12/15/2024 06/16/2026 1 1 Encounter Details Date Type Department Care Team (Late st Contact Info) Description 12/15/2024 Orders Only [facility] [address] [facility] 5th Floor [address], [address] [place] [address] Lázaro Morrow MD [address] [id number] [place] [address] PAD (peripheral artery disease) (CMS/HCC) (Primary Dx); Claudication (CMS/HCC); Atherosclerosis of artery of both lower extremities Social History Tobacco Use Types Packs/Day Years [...] Date 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 Not on file documented as of this encounter Plan of Treatment Scheduled Orders Name Type Priority Associated Diagnoses Orde r Schedule VAS Ankle Brachial Index - Segmental Vascular Ultrasound Routine PAD (peripheral artery disease) (CMS/HCC) Claudication (CMS/HCC) Atherosclerosis of artery of both lower extremities (CMS/HCC) 1 Occurrences starting 12/15/2024 until 06/17/2026 VAS US Aorta IVC Iliac Vessels Duplex Vascular Ultrasound Routine PAD (peripheral artery disease) (CMS/HCC) Claudication (CMS/HCC) Atherosclerosis of artery of both lower extremities (CMS/HCC) 1 Occurrences starting 12/15/2024 until 06/17/2026 VAS US Arterial Duplex Lower Extremity Bilateral Stent Vascular Ultrasound Routine PAD (peripheral artery disease) (CMS/HCC) Claudication (CMS/HCC) Atherosclerosis of artery of both lower extremities (CMS/HCC) 1 Occurrences starting 12/15/2024 until 06/17/2026 documented as of this encounter Visit Diagnoses Diagnosis PAD (peripheral artery disease) (CMS/HCC)- Primary Unspecified peripheral vascular disease Claudication (CMS/HCC) Unspecified peripheral vascular disease Atherosclerosis of artery of both lower extremities documented in this encounter Additional Health Concerns Assessment Noted Time A fall risk assessment has been complete d for the patient 11/22/2023 7:53 AM EDT A Body Mass Index follow-up plan has been documented for the patient 11/22/2023 8:56 AM EDT documented as of this encounter Care Teams Configuration Manager Relationship Specialty Start Date End Date Pcp, [place] [address] PCP - General Family Medicine 12/24/22 Kolby Felix MD [address] [place] [address] [place] [address] Referring Physician Cardiology 12/23/22 documented as of this encounter
--- OUTSIDE RECORDS SUMMARY | 2025-01-22 12:28 | XMS_ITS | Clinical Summary ---
Author Organization Healthcare Address [address] [place] [address] Care Team Providers Care Apprentice Pattern Maker Name Role Phone Kolby Felix MD Unavailable [phone] Pcp, No Primary Care Provider Unavailabl e Allergies No known active allergies Medications bisoprolol (Zebeta) 10 MG tablet Take 1 tablet (10 mg) by mouth 1 (one) time each day. 11/23/2022 Active buPROPion XL (Wellbutrin XL) 150 MG 24 hr tablet Take 1 tablet (150 mg) by mouth 1 (one) time each day. 12/02/2022 Active clopidogrel (Plavix) 75 MG tablet Take 1 tablet (75 mg) by mouth 1 (one) time each day. 11/12/2022 Active losartan (Cozaar) 100 MG tablet Take 1 tablet (100 mg) by mouth 1 (one) time each day. 11/09/2022 Active nitroglycerin (Nitrostat) 0.[address] 1 tablet (0.4 mg) under the tongue every 5 (five) minutes if needed for chest pain. Active aspirin 81 MG EC tablet Take 1 tablet (81 mg) by mouth 1 (one) time each day. Active atorvastatin (Lipitor) 80 MG tablet Take 1 tablet (80 mg) by mouth every night. 30 tablet 2 01/17/2023 Active acetaminophen (Tylenol) 500 MG tablet Take 2 tablets (1,000 mg) by mouth every 6 (six) hours. 100 tablet 01/17/2023 Active methocarbamol (Robaxin) 750 MG tablet Take 1 tablet (750 mg) by mouth 4 (four) times a day for 14 days. 56 tablet 02/08/2023 Active hydroCHLOROthia zide (HYDRODiuril) 25 MG tablet Take 1 tablet (25 mg) by mouth 1 (one) time each day. 30 tablet 2 02/15/2023 Active pantoprazole (Protonix) 40 MG EC tablet Take 1 tablet (40 mg) by mouth 1 (one) time each day. 07/27/2023 Active Xarelto 2.5 MG tablet Take 1 tablet (2.5 mg) by mouth 2 (two) times a day. 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, 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 Resolved Problems Problem Noted Date Diagnosed Date Resolved Date Angina pectoris 01/17/2023 01/17/2023 Volume overload 01/17/2023 01/17/2023 Pleural effusion 01/17/2023 01/17/2023 Hypernatremia 01/17/2023 01/17/2023 Hypocalcemia 01/17/2023 01/26/2023 Hyperkalemia 01/17/2023 01/17/2023 Hypermagnesemia 01/17/2023 01/17/2023 Acute blood loss anemia 01/17/202312/31 Hyponatremia 01/17/2023 01/17/2023 Prolonged Q-T interval on ECG 01/17/2023 01/17/2023 Sinus tachycardia 01/17/2023 01/17/2023 Transient hyperglycemia post procedure 01/17/2023 01/17/2023 H/O: pneumonia 01/17/2023 01/17/2023 Leukocytosis 01/14/2023 01/17/2023 Overview (01/14/2023): Common following cardiac surgery Continue to monitor Gastroparesis 01/13/2023 01/17/2023 Overview (01/13/2023): Large gastric bubble on CXR No NV Start simethicone and phenergan Acute respiratory failure with hypoxia 01/12/2023 01/17/2023 Overview (01/13/2023): Arrived intubated from OR Extubated 01/13 to [facility]NC Wean NC as tolerated Goal SpO2 > 92% Encounters Date Type Department Care Team Description 01/01/2025 Telephone [facility] [address] [place] [address] Emilee Ruth MD 12/15/2024 Orders Only [facility] [address] [place] [address] Lázaro Morrow MD PAD (peripheral artery disease) (CMS/HCC) (Primary Dx); Claudication (CMS/HCC); Atherosclerosis of artery of both lower extremities from Last 3 Months Immunizations Immunization Administration Dates Next Due Hep A, Adult 07/19/2018 Moderna COVID-19 Vaccine (Re d Cap) 12+ years 01/02/2022,06/18/2021,10/30/2020,2020 TD (adult), 2 Lf tetanus tox oid, preservative free, adsorbed 10/01/1996 Tdap 05/18/2013 Family History Medical History Relation Name Comments Coronary artery disease Father Gabriel Gabby Gabriel bojorquez Heart disease Father Gabriel Gabby Hank Hypertension Father Gabriel Gabby Hank Hypertension Maternal Grandfather I Depression Mother Ramona Mckinney Diabetes Mother Ramona Mckinney Coronary artery disease Other 1 Heart attack Other 2 COPD Paternal Grandfather Max Kenney Cervical cancer Sister 1 Hodgkin's lymphoma Sister 1 Lupus Sister 1 Arthritis Sister 2 Aliya Walke Cancer Sister 2 Aliya Walke Depression Sister 2 Aliya Walke Heart disease Sister 2 Aliya Walke Anesthesia problems Neg Hx Malig Hyperthermia Neg Hx Relation Name Status Comments Father Gabriel Mckinney Maternal Grandfather I Mother Ramona Mckinney Other 1 Other 2 Paternal Grandfather Max Kenney Sister 1 Sister 2 Aliya Malcomnicolette Social History Tobacco Use Types Packs/Day Years [...] Date 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 Not on file Last Filed Vital Signs Vital Sign Reading Time Taken Comments Blood Pressure 135/72 11/22/2023 7:55 AM EDT Pulse 56 11/22/2023 7:55 AM EDT Temperature 36.3 C (97.3 F) 11/22/2023 7:53 AM EDT Respiratory Rate 16 11/01/2023 9:09 AM EDT Oxygen Saturation 99% 11/01/2023 9:09 AM EDT Inhaled Oxygen Concentration - - Weight 60.8 kg (134 lb 0.6 oz) 11/22/2023 7:53 A M EDT Height 162.6 cm (5' 4 ) 11/22/2023 7:53 AM EDT Body Mass Index 23.01 11/22/2023 7:53 AM EDT Plan of Treatment Health Maintenance Due Date Last Done Comments [facility]-HIV Screening 1960 [facility]-Hepatitis C Screening 1960 [facility]-Infant/Child/Adol SDOH Screenings 1960 [facility]- SDOH Screenings 02/19/1978 [facility]-Adult SDOH Screenings 02/19/1978 [facility]-Pap Smear 02/19/1981 [facility]-Cervical Cancer Screening 02/19/1990 [facility]-HPV/Cotest 02/19/1990 CT Colonography 02/19/2005 Colonoscopy 02/19/2005 FIT-DNA 02/19/2005 FIT 02/19/2005 FOBT 02/19/2005 Sigmoidoscopy 02/19/2005 [facility]-Colorectal Cancer Screening 02/19/2005 [facility]-Breast Cancer Screening 02/19/2010 [facility]-Zoster Vaccines (1 of 2) 02/19/2010 [facility]-Diabetes: Hemoglobin A1C 12/25/2023 12/24/2022 [id number] Vaccine ( season) 2024 01/02/2022, 06/18/2021, 10/30/2020, Additional history exists [facility]-Depression Screening 11/21/2024 11/22/2023 [facility]-Influenza Vaccine (Season Ended) 2025 [facility]-DTaP,Tdap,and Td Vaccines (3 - Td or Tdap) 10/17/2033 10/18/2023, 05/18/2013, 10/01/1996 [facility]-RSV Vaccine: 60+ Years or (1 - 1-dose 75+ series) 02/19/2035 [facility]-Hepatitis A Vaccines Aged Out 07/19/2018 No longer eligible based on patient's age to complete this topic [facility]-Pneumococcal Vaccine: 50+ Years Completed 10/19/2024 HPV Vaccines Aged Out No longer eligi ble based on patient's age to complete this topic [facility]-HIB Vaccines Aged Out No longer e ligible based on patient's age to complete this topic [facility]-IPV Vaccines Aged Out No longer e ligible based on patient's age to complete this topic [facility]-Rotavirus Vaccines Aged Out No lo nger eligible based on patient's age to complete this topic Procedures Procedure Name Priority Date/Time Associated Diagnosis Comments HEMOGLOBIN A1C Routine 12/24/2022 1:32 PM EDT Coronary artery disease, unspecified vessel or lesion type, unspecified whether angina present, unspecified whether creek or transplanted heart from Last 3 Months or Most Recently Relevant to Health Maintenance Results * (ABNORMAL) Hemoglobin A1c (12/24/2022 1:32 PM EDT) Hemoglobin A1c 5.7(H) <5.7 % 12/24/2022 5:36 PM EDT [facility] Blood Venous blood specimen / Unknown Venipuncture / Unknown 12/24/2022 1:32 PM EDT 12/24/2022 1:33 PM EDT Narrative [facility] - 12/24/2022 5:36 PM EDT HA1C Interpretive Data: Diagnosis of Diabetes: Diabetic > or = 6.5% Pre-diabetic 5.7 to 6.4% Non-diabetic < or = 5.6% Glycemic Targets for Type I and Type II Diabetics: Non- Adults <7.0% Adults <6.0% Children and Adolescents <7.5% Source: [place] [employer]. Standards of medical care in diabetes,2017. Diabetes Care.2017:40 (suppl 1):S1-S135. HbA1c assay performed by an ion-exchange chromatography method that is certified traceable to the DCCT. us Nicolás Isaac MD LAB BLOOD ORDERABLES Final [facility] [address] [place] [address] from Last 3 Months or Most Recently Relevant to Health Maintenance Insurance Advance Directives * Full Code (Latest Code Status on File) Date Activated Date Inactivated Comments 01/12/2023 8:02 PM 01/17/2023 5:21 PM Question Answer Comments Patient has decision-making capacity? Yes Care Teams Apprentice Pattern Maker Relationship Specialty Start Date End Date Pcp, No [address] [place] [phone] PCP - General Family Medicine 12/24/22 Kolby Felix MD [address] [phone] Referring Physician Cardiology 12/23/22
== END 2025-01-18 23:59 | disposition home or self-care (01) ==
LOC: LAB.DROPOF 01-22 12:15
PROVIDERS: PCP Nurse Practitioner Family; Visit Provider Nurse Practitioner Family
DX: E78.5 Hyperlipidemia, unspecified (principal); I10 Essential (primary) hypertension
CPT/HCPCS: 80061

== ENCOUNTER 2025-05-23 10:38 | Day surgery (SDC) | payer MEDICARE, SELFPAY ==
[2025-05-22 10:39] VITALS: BMI 21.4
--- NOTE | 2025-05-22 17:45 | EXP.HP ---
History of Present Illness *Admission Date: 05/23/25 *History of present illness: Mrs. Steward is a 65-year-old female who is here for diagnostic EGD. She was initially referred to the office by Dr. Imelda Ji M.D. for GERD. The patient does report intractable GERD with heartburn and reflux at nighttime when she lies down. This can sometimes occur during the day. She did have cholecystectomy 4 years ago. She does state that she had an EGD decades ago. The patient does report bloating and some belching. She does have globus sensation. She reports moderate early satiety and occasional nausea. She reports no abdominal pain or discomfort. She will occasionally have dysphagia. She also reports diarrhea nearly daily with postprandial bowel urgency. The patient did have a colonoscopy in December 2023 (Sebastian Newby) which was normal. She had previously had colon polyps. She reports no rectal bleeding or weight loss. The patient has been on pantoprazole for years and this has stopped working. On review of labs, in September 2024 she did have new anemia with hemoglobin 11.4 and hematocrit 32.7. She had normocytic indices. She has had normal liver chemistries. Her B12 levels are normal. I do not see prior iron studies. The patient has had prior CT mesenteric angiography and has had prior iliac artery stents. She does have emphysema. [facility] Disclaimer: The information contained in this section may have been updated after the patient was seen, as this information can be updated by other users. Medical History Multiple lung nodules on CT Dyspnea on exertion Pulmonary emphysema Strep throat Lung nodules Abnormal findings on diagnostic imaging of heart and coronary circulation Diarrhea Screening for HIV (human immunodeficiency virus) Encounter for hepatitis C screening test for low risk patient EBONY (acute kidney injury) Encounter for screening for osteoporosis Need for RSV vaccination Need for shingles vaccine Screening for lung cancer Hypokalemia Dizziness Chest pain Abnormal abdominal CT scan Renal artery stenosis Abnormal electrocardiogram [ECG] [EKG] Coronary artery disease Dr. 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 Stenosis of artery of left lower extremity History of cholecystectomy Family History Father Coronary artery disease Hyperlipidemia Hypertension Mother Diabetes Hypertension Sister Coronary artery disease Hypertension Hyperlipidemia Cancer cervical Social History Smoking Status: Former smoker tobacco type: cigarettes packs per day: 1 pack-years: 12 years smoked: 20 how long ago did patient quit smokin year second hand exposure: Yes alcohol intake: never counseling provided: none substance use type: denies use current occupational status: retired Travel in the last 8 weeks?: None household members: none housing: house number of children: 2 current occupational exposures/hazards: No caffeine: Yes Have you lived/traveled outside US in past 30 days?: No Contact w/someone who lives/traveled outside US past 30 days?: No Exposure to someone with infectious disease in past 14 days?: No Do you have a fever (greater than 100.4 F or 38 C)?: No Have you tested positive for COVID-19?: No Exposed to someone with COVID-19 in past 14 days?: No Do you have a sore throat?: No Do you have a cough?: No Do you have any weakness?: No Do you have any diarrhea?: No Are you experiencing any unusual bleeding?: No Do you have any muscle aches/pain?: No Do you have any abdominal pain?: No Are you experiencing loss of taste or smell?: No Other Medical History Have you received the Flu Vaccine for this season: No Have you received the Pneumonia Vaccine: Yes Review of Systems Review of Systems Review of systems (narrative): Negative *Cardiovascular Comments: Negative *Gastrointestinal Comments: Negative *Genitourinary Comments: Negative *Musculoskeletal Comments: Negative *Neurologic Comments: Negative Meds Home Medications and Allergies Home Medications ?Medication ?Instructions ?Recorded ?Confirmed ?Type calcium carbonate (Antacid Ext Str 750 mg PO DAILY 04/25/24 05/22/25 History (calcium carb)) aspirin 81 mg chewable tablet 81 mg PO DAILY Heart disease 10/19/24 05/22/25 History methocarbamol 750 mg tablet 750 mg PO QID PRN muscle spasm 10/19/24 05/22/25 Rx #120 tabs denosumab 60 mg/mL subcutaneous 60 mg SQ [id number] #1 mL 12/14/24 05/22/25 Rx syringe (Prolia) ketoconazole 2 % topical cream 1 applic topical DAILY 01/18/25 05/22/25 History amlodipine 10 mg tablet 10 mg PO DAILY #90 tabs 03/28/25 05/22/25 Rx atorvastatin 80 mg tablet 80 mg PO HS #90 tabs 03/28/25 05/22/25 Rx bisoprolol fumarate 10 mg tablet 10 mg PO DAILY #90 tabs 03/28/25 05/22/25 Rx bupropion HCl 150 mg 24 hr tablet, 150 mg PO DAILY #90 tabs 03/28/25 05/22/25 Rx extended release desvenlafaxine succinate 25 mg 25 mg PO DAILY #90 tabs 03/28/25 05/22/25 Rx tablet,extended release 24 hr desvenlafaxine succinate 50 mg 50 mg PO DAILY #90 tabs 03/28/25 05/22/25 Rx tablet,extended release 24 hr (Pristiq) inclisiran 284 mg/1.5 mL 284 mg (1.5 mL) SQ [id number] #1.5 mL 03/28/25 05/22/25 Rx subcutaneous syringe (Leqvio) isosorbide mononitrate 30 mg 30 mg PO DAILY #90 tabs 03/28/25 05/22/25 Rx tablet,extended release 24 hr hydrochlorothiazide 12.5 mg tablet 25 mg (2 x 12.5 mg) PO DAILY blood 03/29/25 05/22/25 Rx pressure #90 tabs ranolazine 1,000 mg 1,000 mg PO BID #180 tabs 03/29/25 05/22/25 Rx tablet,extended release,12 hr metoclopramide HCl 10 mg tablet 10 mg PO .Dinner and bedtime #60 04/03/25 05/22/25 Rx tabs tiotropium bromide 2.5 2 inh inhalation DAILY 90 days #4 04/06/25 05/22/25 Rx mcg/actuation mist for inhalation grams (Spiriva Respimat) cholecalciferol (vitamin D3) 50 50 mcg PO DAILY #90 caps 04/17/25 05/22/25 Rx mcg (2,000 unit) capsule nitroglycerin 0.4 mg sublingual 0.4 mg sublingual Q5-15M PRN Chest 04/23/25 05/22/25 Rx tablet Pain #30 tabs albuterol sulfate 90 mcg/actuation 2 puff inhalation QID PRN 04/25/25 05/22/25 Rx aerosol inhaler shortness of breath or wheezing 90 days #18 grams losartan 100 mg tablet 100 mg PO DAILY 04/25/25 05/22/25 History ondansetron 4 mg disintegrating 4 mg PO Q8H PRN Nausea/vomiting 04/25/25 05/22/25 Rx tablet #30 tabs pantoprazole 40 mg tablet,delayed See Rx Instructions .Route 05/13/25 05/22/25 Rx release .COMPLEX #180 tabs New Prescriptions to Start Prescriptions: Allergies Allergy/AdvReac Type Severity Reaction Status Date / Time No Known Allergies Allergy Verified 05/08/25 10:48 Exam Data for Last 24 hours I & O for Last 24 hours: Intake & Output 05/19/25 05/20/25 05/21/25 05/22/25 23:59 23:59 23:59 23:59 Weight 125 lb *Routine HEENT Exam Head: Present normocephalic Eye: Present EOMI and PERRL ENT: Present mucous membranes moist *Routine Neck Exam Neck: Present supple *Routine Respiratory Exam Respiratory: Present CTA bilaterally *Routine Cardiovascular Exam Cardiovascular: Present RRR *Routine Abdominal Exam Abdominal: Present soft and normoactive bowel sounds; Absent tenderness *Routine Rectal Exam Rectal:: deferred *Routine Genitalia Exam Genitalia:: deferred *Routine Extremities Exam Extremities: Absent cyanosis, clubbing or edema *Routine Skin Exam Skin: Present warm; Absent rash *Routine Neurological Exam Neurological: Present alert and oriented X3 Assessment and Plan *Assessment and plan (1) Nausea: Status: Acute Category: Medical Code(s): R11.0 - Nausea (2) Early satiety: Status: Acute Category: Medical Code(s): R68.81 - Early satiety (3) Bloating: Status: Acute Category: Medical Code(s): R14.0 - Abdominal distension (gaseous) (4) Globus sensation: Status: Acute Category: Medical Code(s): R09.A2 - Foreign body sensation, throat (5) Heartburn: Status: Acute Category: Medical Code(s): R12 - Heartburn (6) GERD (gastroesophageal reflux disease): Status: Acute Category: Medical Code(s): K21.9 - Gastro-esophageal reflux disease without esophagitis (7) Chronic diarrhea: Status: Acute Category: Medical Code(s): K52.9 - Noninfective gastroenteritis and colitis, unspecified Plan A/P: 1. Nausea, early satiety, bloating, heartburn and reflux with globus sensation is the preprocedural diagnosis. The patient will be anesthetized/sedated using MAC sedation. The patient has been seen and examined. Cardiac and lung assessment prior to the examination is stable. Proceed with planned diagnostic EGD.
--- NOTE | 2025-05-23 06:58 | HMH.PROCNOTE ---
[facility] Procedure Note Date: 05/23/25 Time: 11:22 Procedure Note:: Upper Endoscopy Procedure Report: Esophagogastroduodenoscopy with cold biopsies and TTS balloon dilation Endoscopost: Michi Krause II, MD Referring Physician: TANNER Flanagan Date of Procedure: May 23, 2025 Equipment: Olympus GIF-1100 standard upper endoscope Sedation: MAC sedation Indications: Mrs. Steward is a 65-year-old female who is here for diagnostic EGD. She was initially referred to the office by Dr. Imelda Ji M.D. for GERD. The patient does report intractable GERD with heartburn and reflux at nighttime when she lies down. This can sometimes occur during the day. She did have cholecystectomy 4 years ago. She does state that she had an EGD decades ago. The patient does report bloating and some belching. She does have globus sensation. She reports moderate early satiety and occasional nausea. She reports no abdominal pain or discomfort. She will occasionally have dysphagia. She also reports diarrhea nearly daily with postprandial bowel urgency. The patient did have a colonoscopy in December 2023 (Sebastian Newby) which was normal. She had previously had colon polyps. She reports no rectal bleeding or weight loss. The patient has been on pantoprazole for years and this has stopped working. On review of labs, in September 2024 she did have new anemia with hemoglobin 11.4 and hematocrit 32.7. She had normocytic indices. She has had normal liver chemistries. Her B12 levels are normal. I do not see prior iron studies. The patient has had prior CT mesenteric angiography and has had prior iliac artery stents. She does have emphysema. Procedure: Prior to the procedure, a history and physical exam was performed, and patient's medications and allergies were reviewed. The risks, benefits and alternatives of the sedation and procedure were discussed with the patient. All questions were answered and informed consent was obtained. The patient was brought to the procedure room. Patient identification and proposed procedure were verified by the physician and the nurse. The patient was placed in a left lateral decubitus position and the scope was passed under direct vision. Throughout the procedure, the patient's blood pressure, pulse, and oxygen saturations were monitored continuously. The upper GI endoscopy was accomplished without difficulty. The patient tolerated the procedure well. Findings: The scope was passed directly into the upper esophagus and advanced to the third portion of the duodenum. The post bulbar duodenum, ampulla and duodenal bulb were normal with normal mucosa and conniventes. 2 cold biopsies were taken from the second portion of the duodenum for the disaccharidase assay. The scope was withdrawn through a normal duodenal bulb and pylorus into the stomach. There was mild linear antral gastropathy. The body and fundus of the stomach were normal. Upon retroflexion there was no hiatal hernia. Cold biopsies were taken from the antrum. The scope was then withdrawn into the esophagus. There was no evidence of reflux esophagitis or Moreira's. There is no Schatzki's ring. There were tertiary contractions and evidence of mild esophageal dysmotility. There was a proximal esophageal web adjacent to the cricopharyngeus. The entire esophagus was dilated to 60 Sami/20 mm with a TTS hydrostatic balloon with fracturing of the proximal esophageal fibrous web. The remainder of the esophageal mucosa was normal. Impression: 1. 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 Nonerosive GERD with mild esophageal dysmotility 3. Linear reactive gastropathy of antrum Plan: I will follow-up the biopsies and disaccharidase assay. We will discuss treatment options for her functional GERD.
[2025-05-23 10:54] VITALS: BP 130/61; PULSE 52; RESP 18; TEMP 36.1; O2SAT 100
[2025-05-23] MEDS: LACTATED RINGERS 1000ML 1,000 ML 50 ML IV (11:01)
--- NOTE | 2025-05-23 11:07 | EXP.ANES.CKL ---
[facility] Disclaimer: The information contained in this section may have been updated after the patient was seen, as this information can be updated by other users. Medical History Multiple lung nodules on CT Dyspnea on exertion Pulmonary emphysema Strep throat Lung nodules Abnormal findings on diagnostic imaging of heart and coronary circulation Diarrhea Screening for HIV (human immunodeficiency virus) Encounter for hepatitis C screening test for low risk patient EBONY (acute kidney injury) Encounter for screening for osteoporosis Need for RSV vaccination Need for shingles vaccine Screening for lung cancer Hypokalemia Dizziness Chest pain Abnormal abdominal CT scan Renal artery stenosis Abnormal electrocardiogram [ECG] [EKG] Coronary artery disease Dr. 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 Stenosis of artery of left lower extremity History of cholecystectomy Family History Father Coronary artery disease Hyperlipidemia Hypertension Mother Diabetes Hypertension Sister Coronary artery disease Hypertension Hyperlipidemia Cancer cervical Social History Smoking Status: Former smoker tobacco type: cigarettes packs per day: 1 pack-years: 12 years smoked: 20 how long ago did patient quit smokin year second hand exposure: Yes alcohol intake: never counseling provided: none substance use type: denies use current occupational status: retired Travel in the last 8 weeks?: None household members: none housing: house number of children: 2 current occupational exposures/hazards: No caffeine: Yes Have you lived/traveled outside US in past 30 days?: No Contact w/someone who lives/traveled outside US past 30 days?: No Exposure to someone with infectious disease in past 14 days?: No Do you have a fever (greater than 100.4 F or 38 C)?: No Have you tested positive for COVID-19?: No Exposed to someone with COVID-19 in past 14 days?: No Do you have a sore throat?: No Do you have a cough?: No Do you have any weakness?: No Do you have any diarrhea?: No Are you experiencing any unusual bleeding?: No Do you have any muscle aches/pain?: No Do you have any abdominal pain?: No Are you experiencing loss of taste or smell?: No [facility] Anesthesia Checklist Patient Identification Patient Identification: Arm Band Structural Data Admitted From: Home Planned Operative Procedure/s: EGD Consent for Planned Operative Procedure(s) Verified: Yes Verified Documents: Surgical Consent and History and Physical NPO Status Verified Time NPO: 00:00 Additional verifications Anesthesia Reactions: No Hx Blood Transfusions: No Blood Transfusion Reaction: No Airway Assessment Mallampati Score:: Class II C-Spine Mobility Assessed: Yes TMJ Mobility Assessed: Yes Dentition: Dentures-good fit (upper dentures removed) Neurological Assessment Level of Consciousness: Awake, Alert and Appropriate Anesthesia Plan Anesthesia Risk discussed: Yes Anesthesia Plan: Verified ASA Class: III Anesthesia Type: MAC
[2025-05-23 11:22] VITALS: BP 104/56; PULSE 51; RESP 16; TEMP 36.3; O2SAT 98
[2025-05-23 11:32] VITALS: BP 96/57; PULSE 50; RESP 16; TEMP 36.3; O2SAT 97
[2025-05-23 11:42] VITALS: BP 103/60; PULSE 51; RESP 16; O2SAT 98
[2025-05-23 11:52] VITALS: BP 123/61; PULSE 57; RESP 16; TEMP 36.3; O2SAT 99
[2025-05-29 14:30] LABS: Interpretation Notes (.); Lactase 0.68 (>/= 14.0); Maltase 71.42 (>/= 110.0); Palatinase 4.29 (>/= 8.5); Reference Notes (.); Sucrase 14.01 (>/= 25.0)
== END 2025-05-23 12:14 | disposition home or self-care (01) ==
PROVIDERS: PCP Nurse Practitioner Family; Visit Provider Internal Medicine Gastroenterology
PROC: 0DJ08ZZ Inspection of Upper Intestinal Tract, Via Natural or Artificial Opening Endoscopic (ICD-10-PCS; CPT 43239; principal; 2025-05-23 12:30)
DX: K21.9 Gastro-esophageal reflux disease without esophagitis (principal); K31.89 Other diseases of stomach and duodenum; K22.4 Dyskinesia of esophagus; K52.9 Noninfective gastroenteritis and colitis, unspecified; I10 Essential (primary) hypertension; I25.10 Atherosclerotic heart disease of native coronary artery without angina pectoris; Z79.82 Long term (current) use of aspirin; Z87.891 Personal history of nicotine dependence
CPT/HCPCS: 43239; 43249; 82657; C1726; J2003; J2704; J7120

== ENCOUNTER 2025-05-30 14:47 | Outpatient (CLI) | payer MEDICARE, SELFPAY ==
--- OUTSIDE RECORDS SUMMARY | 2025-05-30 14:49 | XMS_ITS | Clinical Summary ---
Author Organization Healthcare Address [address] [place] [address] Care Team Providers Care Labview Programmer Name Role Phone Kolby Felix MD Unavailable [phone] Pcp, No Primary Care Provider Unavailabl e [...] NC as tolerated Goal SpO2 > 92% Immunizations Immunization Administration Dates Next Due Hep A, Adult 07/19/2018 Moderna COVID-19 Vaccine (Re d Cap) 12+ years 01/02/2022,06/18/2021,10/30/2020,2020 TD (adult), 2 Lf tetanus tox oid, preservative free, adsorbed 10/01/1996 Tdap 05/18/2013 Family History Medical History Relation Name Comments Coronary artery disease Father Gabriel bojorquez Heart disease Father Gabriel Mckinney Hypertension Father Gabriel Mckinney Hypertension Maternal Grandfather I Depression Mother Ramona [...] Other 1 Other 2 Paternal Grandfather Max Cmt Sister 1 Sister 2 Aliya Walke Social History Tobacco Use Types Packs/Day Years [...] Date 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 Not on file Not [...] Health Maintenance Due Date Last Done Comments [facility]-Bone Density Scan 1960 [facility]-Hepatitis C Screening 1960 [facility]-/Child/Adol SDOH Screenings 1960 [facility]- SDOH Screenings 02/19/1978 [facility]-Adult SDOH Screenings 02/19/1978 [facility]-Pap Smear 02/19/1981 [facility]-Cervical Cancer Screening 02/19/1990 [facility]-HPV/Cotest 02/19/1990 CT Colonography 02/19/2005 Colonoscopy 02/19/2005 FIT-DNA 02/19/2005 FIT 02/19/2005 FOBT 02/19/2005 Sigmoidoscopy 02/19/2005 [facility]-Colorectal Cancer Screening 02/19/2005 [facility]-Breast Cancer Screening 02/19/2010 [facility]-Zoster Vaccines (1 of 2) 02/19/2010 [facility]-Diabetes: Hemoglobin A1C 12/25/2023 12/24/2022 [facility]-Depression Screening 11/21/2024 11/22/2023 [id number] Vaccine ( season) 2025 01/02/2022, 06/18/2021, 10/30/2020, Additional history exists [facility]-Influenza Vaccine (#1) 2025 [facility]-DTaP,Tdap,and Td Vaccines (3 - Td [...] type, unspecified whether angina present, unspecified whether [place] or transplanted heart from Last 3 Months or Most Recently Relevant to Health Maintenance Results * (ABNORMAL) Hemoglobin A1c (12/24/2022 1:32 PM EDT) Hemoglobin A1c 5.7(H) <5.7 % 12/24/2022 5:36 PM EDT [facility] Blood Venous blood specimen / Unknown [...] Adults <6.0% Children and Adolescents <7.5% Source: [place] [employer]. Standards of medical care in diabetes,2017. Diabetes Care.2017:40 (suppl 1):S1-S135. HbA1c assay performed by an ion-exchange chromatography method that is certified traceable to the DCCT. us Nicolás Isaac MD LAB BLOOD ORDERABLES Final R [facility] [address] [place] [address] from Last 3 Months or Most Recently Relevant to Health Maintenance Insurance [facility] MEDICAID Advance Directives * Full Code (Latest Code Status on File) Date Activated Date Inactivated Comments 01/12/2023 8:02 PM 01/17/2023 5:21 PM Question Answer Comments Patient has decision-making capacity? Yes Care Teams Labview Programmer Relationship Specialty Start Date End Date Pcp, No [address] [place] [address] PCP - General Family Medicine 12/24/22 Kolby Felix MD [facility] [address] [address] Referring Physician Cardiology 12/23/22
--- OUTSIDE RECORDS SUMMARY | 2025-05-30 14:49 | XMS_ITS | Encounter Summary ---
Author Organization Healthcare Address [address] [place] [address] Care Team Providers Care Software Testing Specialist Name Role Phone Kolby Felix MD Primary Care Provider Kolby Felix MD Unavailable [phone] Pcp, No Primary Care Provider Unavailabl e Encounter Details Date Type Department Care Team (Late st Contact Info) Description 10/19/2022 Orders Only External Location [address] [phone] Demetria Vora APRN [address] [phone] Social History Tobacco Use Types Packs/Day Years [...] on filedocumented in this encounter Care Teams Software Testing Specialist Relationship Specialty Start Date End Date Kolby Felix MD [address] [place] [address] [phone] PCP - General 12/13/20 12/22/22 Pcp, Lizzy [address] [place] [phone] PCP - General Family Medicine 12/24/22 Kolby Felix MD [address] [place] [address] [phone] Referring Physician Cardiology 12/23/22 documented as of this encounter
[2025-05-30 15:55] VITALS: PULSE 56; PULSE 60
[2025-05-30] MEDS: ALBUTEROL 0.083% 2.5 MG/3 ML NEB IH (15:55)
== END 2025-05-30 23:59 | disposition home or self-care (01) ==
LOC: RT 14:47
PROVIDERS: PCP Nurse Practitioner Family; Visit Provider Internal Medicine Pulmonary Disease
DX: J44.9 Chronic obstructive pulmonary disease, unspecified (principal); R94.2 Abnormal results of pulmonary function studies
CPT/HCPCS: 94060; 94618; 94640; 94726; 94729

== ENCOUNTER 2025-06-21 13:02 | Outpatient (CLI) | payer MEDICARE, SELFPAY ==
[2025-06-21 13:10] VITALS: BP 120/66; PULSE 58; RESP 18; TEMP 36.3; O2SAT 99
[2025-06-21] MEDS: DENOSUMAB 60 MG/ML SYRINGE SUBCUT (13:10)
== END 2025-06-21 23:59 | disposition home or self-care (01) ==
LOC: INF 13:03
PROVIDERS: PCP Nurse Practitioner Family; Visit Provider Nurse Practitioner Family
DX: M81.0 Age-related osteoporosis without current pathological fracture (principal)
CPT/HCPCS: 96372; J0897